=== PATIENT | female | born 1950 | race Hispanic/Latino ===

== ENCOUNTER 2017-01-23 18:10 | Observation (INO) | payer BC, MEDICAID, MEDICARE, OTHER ==
[2017-01-23 18:10] VITALS: BMI 30.9
--- NOTE | 2017-01-23 18:42 | ED PDOC ---
HPI: Abdomen Time Seen by Provider: 01/23/17 18:29 Chief Complaint (Nursing): Abdominal Pain Chief Complaint (Provider): Right lower quadrant abdominal pain History Per: Patient History/Exam Limitations: no limitations Onset/Duration Of Symptoms: Other (2 years) Location Of Pain/Discomfort: RLQ Additional Complaint(s): Patient is a 66 years old female with a past medical history of cholecystectomy and chronic renal failure (on dialysis) presenting to the emergency department for right lower quadrant abdominal pain ongoing for two years with associated occasional diarrhea. Denies bleeding, vomiting, and fever. Of note, patient has had previous multiple ED visits and workups with no conclusive findings and went to [facility]] two weeks ago. Last dialysis session was on January 21. PCP: Dr. Ashleigh Biggs. Past Medical History Reviewed: Historical Data Vital Signs: Last Vital Signs Temp 97.6 F 01/23/17 18:18 Pulse 60 01/23/17 18:18 Resp 16 01/23/17 18:18 BP 146/70 01/23/17 18:18 Pulse Ox 94 L 01/23/17 18:58 - Medical History PMH: Anemia, Anxiety, Back Problems, CHF, Depression, Diabetes, Gall Bladder Disease, HTN, Hypercholesterolemia, Hypothyroidism, Peripheral Edema, Pneumonia , End Stage Renal Disease, Chronic Kidney Disease, Sleep Apnea, TIA (right sided weakness) - Surgical History Surgical History: Cholecystectomy, Endoscopy, Tonsillectomy - Family History Family History: States: Unknown Family Hx, Hypertension (mother and father) - Immunization History Hx Tetanus Toxoid Vaccination: No Hx Influenza Vaccination: No Hx Pneumococcal Vaccination: Yes - Home Medications Home Medications: Ambulatory Orders Medication Instructions Recorded Atenolol [Tenormin] 25 mg PO DAILY 01/21/17 Cephalexin [Keflex] 500 mg PO MWF #3 capsule 01/21/17 GlipiZIDE [Glucotrol] 5 mg PO DAILY 01/21/17 Neomycin/Polymyxin/Hydrocortis 4 drop OT QID #1 bottle 01/21/17 [Cortisporin Otic Susp] traMADol [Ultram] 50 mg PO Q12 PRN #10 tab 01/21/17 - Allergies Allergies/Adverse Reactions: Allergies Allergy/AdvReac Type Severity Reaction Status Date / Time calcium acetate [From PhosLo] Allergy Severe hives Verified 01/23/17 04:31 glycerin Allergy Severe RASH Verified 01/23/17 04:31 Influenza Virus Vaccines Allergy Severe ANAPHYLAXIS Verified 01/23/17 04:31 levofloxacin Allergy Severe numbness Verified 01/23/17 04:31 propylene glycol Allergy Severe SWELLING Verified 01/23/17 04:31 sodium polystyrene sulfonate Allergy Severe SWELLING Verified 01/23/17 04:31 [From Kayexalate] ergocalciferol (vitamin D2) Allergy SWELLING Verified 01/23/17 04:31 [From Vitamin D2] seafood Allergy Severe throat Uncoded 01/23/17 04:31 swelling Review of Systems ROS Statement: Except As Marked, All Systems Reviewed And Found Negative Constitutional: Negative for: Fever Gastrointestinal: Positive for: Abdominal Pain (Right lower quadrant abdominal pain), Diarrhea (occasional). Negative for: Vomiting, Other (bleeding) Physical Exam - Reviewed Nursing Documentation Reviewed: Yes Vital Signs Reviewed: Yes - Physical Exam Appears: Positive for: Well, Non-toxic, No Acute Distress Head Exam: Positive for: ATRAUMATIC, NORMAL INSPECTION, NORMOCEPHALIC Skin: Positive for: Normal Color, Warm, Dry Eye Exam: Positive for: Normal appearance, EOMI, PERRL Neck: Positive for: Normal, Painless ROM, Supple Cardiovascular/Chest: Positive for: Regular Rate, Rhythm. Negative for: Murmur Respiratory: Positive for: Normal Breath Sounds. Negative for: Respiratory Distress Gastrointestinal/Abdominal: Positive for: Tenderness (right lower quadrant abdominal tenderness). Negative for: Normal Exam Back: Positive for: Normal Inspection Extremity: Positive for: Swelling (bilateral lower extremity edema). Negative for: Calf Tenderness Neurologic/Psych: Positive for: Alert, Oriented. Negative for: Motor/Sensory Deficits - Laboratory Results Result Diagrams: 01/23/17 19:01 01/23/17 19:01 - ECG O2 Sat by Pulse Oximetry: 94 (RA) Pulse Ox Interpretation: Normal Medical Decision Making Medical Decision Making: Time: 1836 Initial impression: Right lower quadrant abdominal pain Initial plan: Labs Urine Dipstick Reevaluation Scribe Attestation: Documented by Roberta Dickson, acting as a scribe for Mark Guzmán MD. Provider Scribe Attestation: All medical record entries made by the Scribe were at my direction and personally dictated by me. I have reviewed the chart and agree that the record accurately reflects my personal performance of the history, physical exam, medical decision making, and the department course for this patient. I have also personally directed, reviewed, and agree with the discharge instructions and disposition. Disposition - Clinical Impression Clinical Impression: Chronic kidney disease, stage V, UTI (urinary tract infection) - Patient ED Disposition Is Patient to be Admitted: Yes - Disposition Disposition Time: 20:59 Condition: FAIR Forms: [facility] (Algerian) - Pt Status Changed To: Hospital Disposition Of: Inpatient - Admit Certification Admit to Inpatient:: After my assessment, the patient will require hospitalization for at least two midnights. This is because of the severity of symptoms shown, intensity of services needed, and/or the medical risk in this patient being treated as an outpatient. - POA Present On Arrival: None
[2017-01-23 19:17] LABS: BASO # 0.1 K/uL (0.0-0.2); EOS # 0.2 K/uL (0.0-0.7); EOS % 2.4 % (0.0-4.0); HEMOGLOBIN 8.5 g/dL (12.0-16.0); LYMPH # 1.4 K/uL (1.0-4.3); LYMPH % 20.1 % (20.0-40.0); MEAN CELL VOLUME 86.5 fl (81.0-99.0); MEAN CORPUSCULAR HEMOGLOBIN 28.2 pg (27.0-31.0); MEAN CORPUSCULAR HGB CONC 32.6 g/dL (33.0-37.0); MEAN PLATELET VOLUME 7.8 fl (7.2-11.7); MONO # 0.6 K/uL (0.0-0.8); NEUT # 4.7 K/uL (1.8-7.0); NEUT % 67.5 % (50.0-75.0); NRBC % 0.1 % (0.0-0.0); RED CELL DISTRIBUTION WIDTH 18.7 % (11.5-14.5)
[2017-01-23 19:25] LABS: ALB/GLOB RATIO 1.3 (1.0-2.1); ALBUMIN 4.3 g/dL (3.5-5.0)
[2017-01-23] MEDS ORDERED: cefTRIAXone (Rocephin) 1 gm Inj ONE (21:27)
[2017-01-24] MEDS: Pantoprazole 40 mg EC Tab PO SCH ×2 (01:22→09:55)
[2017-01-24 06:22] VITALS: O2SAT 96
[2017-01-24 06:24] LABS: HEMOGLOBIN 8.6 g/dL (12.0-16.0); MEAN CELL VOLUME 85.9 fl (81.0-99.0); MEAN CORPUSCULAR HEMOGLOBIN 28.2 pg (27.0-31.0); MEAN CORPUSCULAR HGB CONC 32.8 g/dL (33.0-37.0); RBC 3.07 Mil/uL (3.80-5.20); RED CELL DISTRIBUTION WIDTH 18.4 % (11.5-14.5); WHITE BLOOD COUNT 7.3 K/uL (4.8-10.8)
[2017-01-24 06:38] LABS: ALB/GLOB RATIO 1.3 (1.0-2.1); ALBUMIN 4.3 g/dL (3.5-5.0); CALCIUM 7.9 mg/dL (8.4-10.2)
--- NOTE | 2017-01-24 07:33 | CARD ---
APPROVED REPORT EKG Measurement Heart [id number] <Conclusion> Normal sinus rhythm Left axis deviation Left bundle branch block Abnormal ECG
[2017-01-24 08:14] VITALS: BP 166/68; PULSE 56; RESP 18; TEMP 97.9
[2017-01-24] MEDS ORDERED: Enoxaparin 30 mg Syringe SC SCH (09:00)
[2017-01-24] MEDS ORDERED: Pantoprazole 40 mg EC Tab PO SCH (09:00)
--- NOTE | 2017-01-24 10:34 | CP.PCM.CON ---
History of Present Illness - History of Present Illness History of Present Illness: Patient is a 66 years of age admitted with abdominal pain from the emergency room. I came to see her this morning and she is dressed up and ready to sign out against advice because she wants to go home with her daughter at the bedside. This patient home with end stage renal disease she missed dialysis yesterday she goes to outpatient dialysis unit. She has a previous admission in this hospital which she was very difficult patient at that time and remained difficult refusing multiple medication refusing dialysis at that time at least. Patient has been follow-up by outpatient dialysis with her lay out worker History of CVA hypertension and stage renal disease. Social history as noted Review of Systems - Constitutional Constitutional: Anorexia - EENT Eyes: As Per HPI Nose/Mouth/Throat: As Per HPI - Cardiovascular Cardiovascular: absent: Chest Pain, Dyspnea, Leg Edema - Respiratory Respiratory: Dyspnea on Exertion - Gastrointestinal Gastrointestinal: Abdominal Pain - Reproductive: Female Reproductive:Female: Post Menopausal - Menstruation Menstruation: As Per HPI - Musculoskeletal Musculoskeletal: Muscle Weakness - Neurological Neurological: As Per HPI Past Patient History - Infectious Disease Hx of Infectious Diseases: None - Past Medical History & Family History Past Medical History?: Yes - Past Social History Smoking Status: Never Smoked - CARDIAC Hx Cardiac Disorders: Yes Hx Congestive Heart Failure: Yes Hx Hypercholesterolemia: Yes Hx Hypertension: Yes - PULMONARY Hx Respiratory Disorders: Yes Hx Pneumonia: Yes Hx Sleep Apnea: Yes - NEUROLOGICAL Hx Neurological Disorder: Yes Hx Transient Ischemic Attacks (TIA): Yes (Right sided weakness) - HEENT Hx HEENT Problems: No - RENAL Hx Chronic Kidney Disease: Yes Hx Dialysis: Yes Type of Dialysis Access: Left upper arm AV fistula Date of Last Dialysis Treatment: 01/21/17 Hx Renal Failure: Yes - ENDOCRINE/METABOLIC Hx Endocrine Disorders: Yes Hx Diabetes Mellitus Type 2: Yes Hx Hypothyroidism: Yes - HEMATOLOGICAL/ONCOLOGICAL Hx Blood Disorders: Yes Hx Anemia: Yes - INTEGUMENTARY Hx Dermatological Problems: No - MUSCULOSKELETAL/RHEUMATOLOGICAL Hx Musculoskeletal Disorders: Yes Hx Back Pain: Yes Hx Falls: No - GASTROINTESTINAL Hx Gastrointestinal Disorders: Yes Hx Gall Bladder Disease: Yes - GENITOURINARY/GYNECOLOGICAL Hx Genitourinary Disorders: No - PSYCHIATRIC Hx Psychophysiologic Disorder: Yes Hx Anxiety: Yes Hx Substance Use: No - SURGICAL HISTORY Hx Surgeries: Yes Hx Cholecystectomy: Yes Hx Tonsillectomy: Yes - ANESTHESIA Hx Anesthesia: Yes Hx Anesthesia Reactions: No Hx Malignant Hyperthermia: No Meds Allergies/Adverse Reactions: Allergies Allergy/AdvReac Type Severity Reaction Status Date / Time calcium acetate [From PhosLo] Allergy Severe hives Verified 01/23/17 04:31 glycerin Allergy Severe RASH Verified 01/23/17 04:31 Influenza Virus Vaccines Allergy Severe ANAPHYLAXIS Verified 01/23/17 04:31 levofloxacin Allergy Severe numbness Verified 01/23/17 04:31 propylene glycol Allergy Severe SWELLING Verified 01/23/17 04:31 sodium polystyrene sulfonate Allergy Severe SWELLING Verified 01/23/17 04:31 [From Kayexalate] ergocalciferol (vitamin D2) Allergy SWELLING Verified 01/23/17 04:31 [From Vitamin D2] tramadol AdvReac NAUSEA Verified 01/24/17 00:01 seafood Allergy Severe throat Uncoded 01/23/17 04:31 swelling - Medications Medications: Current Medications Heparin Sodium (Porcine) (Heparin) 5,000 units SC Q12 [facility] PRN Reason: Protocol Last Admin: 01/24/17 09:55 Dose: Not Given Ceftriaxone Sodium 1 gm/ (Sodium Chloride) 100 mls @ 100 mls/hr IVPB DAILY [facility] Last Admin: 01/24/17 09:55 Dose: Not Given Pantoprazole Sodium (Protonix Ec Tab) 40 mg PO DAILY [facility] Last Admin: 01/24/17 09:55 Dose: Not Given Physical Exam - Constitutional Appears: No Acute Distress - ENT Exam ENT Exam: Mucous Membranes Moist - Respiratory Exam Respiratory Exam: NORMAL BREATHING PATTERN. absent: Chest Wall Tenderness - Cardiovascular Exam Cardiovascular Exam: absent: JVD, Rubs - GI/Abdominal Exam GI & Abdominal Exam: Normal Bowel Sounds - Extremities Exam Extremities exam: Positive for: calf tenderness - Back Exam Back exam: absent: CVA tenderness (L), CVA tenderness (R) - Neurological Exam Neurological exam: Alert Results - Vital Signs Recent Vital Signs: Last Vital Signs Temp 97.9 F 01/24/17 08:00 Pulse 56 L 01/24/17 08:00 Resp 18 01/24/17 08:00 BP 166/68 H 01/24/17 08:00 Pulse Ox 96 01/24/17 08:00 - Labs Result Diagrams: 01/24/17 05:35 01/24/17 05:35 Labs: Laboratory Results - last 24 hr 0801/24/17 01/24/17 05:10 05:35 05:35 WBC 7.3 RBC 3.07 L Hgb 8.6 L Hct 26.3 L MCV 85.9 MCH 28.2 MCHC 32.8 L RDW 18.4 H Plt Count 288 Sodium 139 Potassium 4.9 Chloride 95 L Carbon Dioxide 23 Anion Gap 26 H BUN 71 H Creatinine 7.8 H* Est GFR ( Amer) 6 Est GFR (Non-Af Amer) 5 POC Glucose (mg/dL) 158 H Random Glucose 126 H Calcium 7.9 L Total Bilirubin 1.4 H AST 59 H ALT 53 H Alkaline Phosphatase 140 H Total Protein 7.6 Albumin 4.3 Globulin 3.3 Albumin/Globulin Ratio 1.3 Assessment & Plan (1) Chronic kidney disease requiring chronic dialysis Assessment and Plan: Patient known with end stage renal disease on maintenance dialysis 3 times a week she missed her dialysis and about to do dialysis this morning don't have she refused to sign consent for dialysis also she sign herself out and leaving . Her daughter at the bedside. Patient stated no more abdominal pain and she is going to go outpatient dialysis unit with her daughter. I advised strongly the patient to stay here and have have dialysis however she absolutely positively refused and she is ready to leave. Status: Acute
--- NOTE | 2017-01-24 16:47 | CP.PCM.HP ---
History of Present Illness - History of Present Illness History of Present Illness: 66 y/o F with PMHx of HTN, DM, and CKD on Dialysis three times per week( M, W, F ) who presents to ED yesterday c/o intermittent right sided back pain since the last 2 years.Patient states that the pain started in her neck, radiates to her back and then radiates to her right abdomen and sometimes right sided externa genitalia. Patient denies fevers, chills, dysuria, N/V, hematuria. Patient states that the pain is associated with gas sensation and burping. As per patient she missed her dialysis yesterday because " she was not feeling well". PCP: Dr. Ashleigh Biggs. Nephro: Shanna Lombardi Present on Admission - Present on Admission Any Indicators Present on Admission: No History of DVT/PE: No History of Uncontrolled Diabetes: No Urinary Catheter: No Decubitus Ulcer Present: No Review of Systems - Review of Systems All systems: reviewed and no additional remarkable complaints except (as per HPI ) Past Patient History - Infectious Disease Hx of Infectious Diseases: None - Past Medical History & Family History Past Medical History?: Yes - Past Social History Smoking Status: Never Smoked - CARDIAC Hx Cardiac Disorders: Yes Hx Congestive Heart Failure: Yes Hx Hypercholesterolemia: Yes Hx Hypertension: Yes - PULMONARY Hx Respiratory Disorders: Yes Hx Pneumonia: Yes Hx Sleep Apnea: Yes - NEUROLOGICAL Hx Neurological Disorder: Yes Hx Transient Ischemic Attacks (TIA): Yes (Right sided weakness) - HEENT Hx HEENT Problems: No - RENAL Hx Chronic Kidney Disease: Yes Hx Dialysis: Yes Type of Dialysis Access: Left upper arm AV fistula Date of Last Dialysis Treatment: 01/21/17 Hx Renal Failure: Yes - ENDOCRINE/METABOLIC Hx Endocrine Disorders: Yes Hx Diabetes Mellitus Type 2: Yes Hx Hypothyroidism: Yes - HEMATOLOGICAL/ONCOLOGICAL Hx Blood Disorders: Yes Hx Anemia: Yes - INTEGUMENTARY Hx Dermatological Problems: No - MUSCULOSKELETAL/RHEUMATOLOGICAL Hx Musculoskeletal Disorders: Yes Hx Back Pain: Yes Hx Falls: No - GASTROINTESTINAL Hx Gastrointestinal Disorders: Yes Hx Gall Bladder Disease: Yes - GENITOURINARY/GYNECOLOGICAL Hx Genitourinary Disorders: No - PSYCHIATRIC Hx Psychophysiologic Disorder: Yes Hx Anxiety: Yes Hx Substance Use: No - SURGICAL HISTORY Hx Surgeries: Yes Hx Cholecystectomy: Yes Hx Tonsillectomy: Yes - ANESTHESIA Hx Anesthesia: Yes Hx Anesthesia Reactions: No Hx Malignant Hyperthermia: No Meds Allergies/Adverse Reactions: Allergies Allergy/AdvReac Type Severity Reaction Status Date / Time calcium acetate [From PhosLo] Allergy Severe hives Verified 01/23/17 04:31 glycerin Allergy Severe RASH Verified 01/23/17 04:31 Influenza Virus Vaccines Allergy Severe ANAPHYLAXIS Verified 01/23/17 04:31 levofloxacin Allergy Severe numbness Verified 01/23/17 04:31 propylene glycol Allergy Severe SWELLING Verified 01/23/17 04:31 sodium polystyrene sulfonate Allergy Severe SWELLING Verified 01/23/17 04:31 [From Kayexalate] ergocalciferol (vitamin D2) Allergy SWELLING Verified 01/23/17 04:31 [From Vitamin D2] tramadol AdvReac NAUSEA Verified 01/24/17 00:01 seafood Allergy Severe throat Uncoded 01/23/17 04:31 swelling Physical Exam - Constitutional Appears: No Acute Distress - ENT Exam ENT Exam: Mucous Membranes Moist - Respiratory Exam Respiratory Exam: Clear to Auscultation Bilateral, NORMAL BREATHING PATTERN - Cardiovascular Exam Cardiovascular Exam: REGULAR RHYTHM, +S1, +S2 - GI/Abdominal Exam GI & Abdominal Exam: Normal Bowel Sounds, Soft, Tenderness (mild diffuse tenderness to palpation of all quadrants, no rebound tenderness noted. ). absent: Guarding, Rebound, Rigid - Extremities Exam Extremities exam: Positive for: normal inspection, pedal edema (edema in both LE pitting 2+). Negative for: calf tenderness - Back Exam Back exam: NORMAL INSPECTION. absent: CVA tenderness (L), CVA tenderness (R) - Neurological Exam Neurological exam: Alert, Oriented x3 - Skin Skin Exam: Dry, Intact, Pallor Results - Vital Signs Recent Vital Signs: Last Vital Signs Temp 97.9 F 01/24/17 08:00 Pulse 56 L 01/24/17 09:00 Resp 18 01/24/17 08:00 BP 166/68 H 01/24/17 08:00 Pulse Ox 96 01/24/17 08:00 - Labs Result Diagrams: 01/24/17 05:35 01/24/17 05:35 Labs: Laboratory Results - last 24 hr 01/24/17 01/24/17 01/24/17 05:10 05:35 05:35 WBC 7.3 RBC 3.07 L Hgb 8.6 L Hct 26.3 L MCV 85.9 MCH 28.2 MCHC 32.8 L RDW 18.4 H Plt Count 288 Sodium 139 Potassium 4.9 Chloride 95 L Carbon Dioxide 23 Anion Gap 26 H BUN 71 H Creatinine 7.8 H* Est GFR ( Amer) 6 Est GFR (Non-Af Amer) 5 POC Glucose (mg/dL) 158 H Random Glucose 126 H Calcium 7.9 L Total Bilirubin 1.4 H AST 59 H ALT 53 H Alkaline Phosphatase 140 H Total Protein 7.6 Albumin 4.3 Globulin 3.3 Albumin/Globulin Ratio 1.3 Assessment & Plan - Assessment and Plan (Free Text) Plan: UTI -admit to telemetry -UA done on 01/21/17 at [facility] showed WBC: 161. No UCx recorded -f/u UCx f/u BCx C/W antibiotics Uncontrolled Hypertension c/w home medication c/w Dialysis c/w BP monitoring CKD stage V on Dialysis BUN/Cr: 71/7.8 f/u BMP Nephrology consult , f/u recommendations Anemia Most likely 2/2 CKD f/w H/H DVT prophylaxis Heparin SC Q12 - Date & Time Date: 01/24/17 Time: 08:10
== END 2017-01-24 11:30 | disposition left against medical advice (07) ==
LOC: H.ER 18:10 → H.ERHOLD 20:57 → H.TEL 23:24
PROVIDERS: ADMIT Family Medicine; ATTEND Family Medicine
DX: N39.0 Urinary tract infection, site not specified (principal); I13.2 Hypertensive heart and chronic kidney disease with heart failure and with stage 5 chronic kidney disease, or end stage renal disease; N18.5 Chronic kidney disease, stage 5; I50.9 Heart failure, unspecified; D63.1 Anemia in chronic kidney disease; E11.22 Type 2 diabetes mellitus with diabetic chronic kidney disease; Z99.2 Dependence on renal dialysis; E03.9 Hypothyroidism, unspecified; E78.00 Pure hypercholesterolemia, unspecified; G47.30 Sleep apnea, unspecified; I69.951 Hemiplegia and hemiparesis following unspecified cerebrovascular disease affecting right dominant side; Z88.1 Allergy status to other antibiotic agents; Z88.7 Allergy status to serum and vaccine
CPT/HCPCS: 36415; 80053; 82948; 85025; 85027; 87040; 93005; 96365; 99285; G0378; J0696

== ENCOUNTER 2017-01-27 01:33 | Emergency (ER) | payer MEDICARE ==
[2017-01-27 01:33] VITALS: BMI 30.9
[2017-01-27 02:13] VITALS: BP 162/53; PULSE 74; RESP 16; TEMP 99; O2SAT 98
[2017-01-27 02:45] LABS: BASO # 0.1 K/uL (0.0-0.2); BASO % 1.2 % (0.0-2.0); EOS # 0.2 K/uL (0.0-0.7); EOS % 2.9 % (0.0-4.0); HEMOGLOBIN 8.5 g/dL (12.0-16.0); LYMPH # 1.3 K/uL (1.0-4.3); LYMPH % 17.8 % (20.0-40.0); MEAN CELL VOLUME 86.6 fl (81.0-99.0); MEAN CORPUSCULAR HEMOGLOBIN 28.5 pg (27.0-31.0); MEAN CORPUSCULAR HGB CONC 32.9 g/dL (33.0-37.0); MEAN PLATELET VOLUME 7.7 fl (7.2-11.7); MONO # 0.8 K/uL (0.0-0.8); MONO % 11.1 % (0.0-10.0); NEUT # 4.9 K/uL (1.8-7.0); NRBC % 0.1 % (0.0-0.0); RBC 2.98 Mil/uL (3.80-5.20); RED CELL DISTRIBUTION WIDTH 18.5 % (11.5-14.5); WHITE BLOOD COUNT 7.4 K/uL (4.8-10.8)
--- NOTE | 2017-01-27 02:46 | ED PDOC ---
HPI: Abdomen Time Seen by Provider: 01/27/17 02:00 Chief Complaint (Nursing): Abdominal Pain Chief Complaint (Provider): abdominal pain History Per: Patient (66 y/o female h/o DM/HTN/Dialysis MWF with complaint of abdominal pain on and off ruq. Patient has h/o cholecystecomy. Notes belching. Denies any vomiting. Has had BM yesterday. No fevers/chills.) Past Medical History Reviewed: Historical Data, Nursing Documentation, Vital Signs Vital Signs: Last Vital Signs Temp 99.0 F 01/27/17 02:11 Pulse 74 01/27/17 02:11 Resp 16 01/27/17 02:11 BP 162/53 H 01/27/17 02:11 Pulse Ox 98 01/27/17 05:06 - Medical History PMH: Anemia, Anxiety, Back Problems, CHF, Depression, Diabetes, Gall Bladder Disease, HTN, Hypercholesterolemia, Hypothyroidism, Peripheral Edema, Pneumonia , End Stage Renal Disease, Chronic Kidney Disease, Sleep Apnea, TIA (Right sided weakness) - Surgical History Surgical History: Cholecystectomy, Endoscopy, Tonsillectomy - Family History Family History: States: Unknown Family Hx, Hypertension (mother and father) - Immunization History Hx Tetanus Toxoid Vaccination: No Hx Influenza Vaccination: No Hx Pneumococcal Vaccination: Yes - Home Medications Home Medications: Ambulatory Orders Medication Instructions Recorded Atenolol [Tenormin] 25 mg PO DAILY 01/21/17 Cephalexin [Keflex] 500 mg PO F #3 capsule 01/21/17 GlipiZIDE [Glucotrol] 5 mg PO DAILY 01/21/17 Neomycin/Polymyxin/Hydrocortis 4 drop OT QID #1 bottle 01/21/17 [Cortisporin Otic Susp] traMADol [Ultram] 50 mg PO Q12 PRN #10 tab 01/21/17 Cephalexin [Keflex] 250 mg PO Q12 #8 cap 01/27/17 Metoclopramide [Reglan] 10 mg PO Q8 PRN #8 tab 01/27/17 - Allergies Allergies/Adverse Reactions: Allergies Allergy/AdvReac Type Severity Reaction Status Date / Time calcium acetate [From PhosLo] Allergy Severe hives Verified 01/23/17 04:31 glycerin Allergy Severe RASH Verified 01/23/17 04:31 Influenza Virus Vaccines Allergy Severe ANAPHYLAXIS Verified 01/23/17 04:31 levofloxacin Allergy Severe numbness Verified 01/23/17 04:31 propylene glycol Allergy Severe SWELLING Verified 01/23/17 04:31 sodium polystyrene sulfonate Allergy Severe SWELLING Verified 01/23/17 04:31 [From Kayexalate] ergocalciferol (vitamin D2) Allergy SWELLING Verified 01/23/17 04:31 [From Vitamin D2] tramadol AdvReac NAUSEA Verified 01/24/17 00:01 seafood Allergy Severe throat Uncoded 01/23/17 04:31 swelling Review of Systems ROS Statement: Except As Marked, All Systems Reviewed And Found Negative Gastrointestinal: Positive for: Abdominal Pain Physical Exam - Reviewed Nursing Documentation Reviewed: Yes Vital Signs Reviewed: Yes - Physical Exam Appears: Positive for: Well, Non-toxic, No Acute Distress Head Exam: Positive for: ATRAUMATIC, NORMAL INSPECTION, NORMOCEPHALIC Skin: Positive for: Normal Color, Warm, DRY Eye Exam: Positive for: EOMI, Normal appearance, PERRL ENT: Positive for: Normal ENT Inspection Neck: Positive for: Normal, Painless ROM Cardiovascular/Chest: Positive for: Regular Rate, Rhythm Respiratory: Positive for: CNT, Normal Breath Sounds Gastrointestinal/Abdominal: Positive for: Normal Exam, Bowel Sounds, Soft Back: Positive for: Normal Inspection Extremity: Positive for: Normal ROM Neurologic/Psych: Positive for: Alert, Oriented - Laboratory Results Result Diagrams: 01/27/17 02:00 01/27/17 02:00 - ECG O2 Sat by Pulse Oximetry: 98 - Progress ED Course And Treament: Reglan 10 mg iv x 1 dose Pepcid 20 mg iv x 1 dose Old records reviewed. Patient was admitted 01/23/2017 for abdominal pain/uti. Patient left AMA prior to further investigation of abdominal pain. Patient has had CT of abdomen/pelvis 12/2016 at [facility] with notice of right adnexal mass. simethicone 80mg x 1 dose with improvement UTI noted. Patient does not want to stay inpatient as she has dialysis tomorrow and would prefer to have it at her primary center. She will call Dr. Gisselle CURTIS to arrange for further management of abdominal pain. Disposition - Clinical Impression Clinical Impression: Gastroparesis, UTI (urinary tract infection) - Patient ED Disposition Is Patient to be Admitted: No - Disposition Referrals: Lex Oleary MD, PhD [Staff Provider] - [facility] [Outside] Disposition: Routine/Home Disposition Time: 05:10 Condition: FAIR Prescriptions: Cephalexin [Keflex] 250 mg PO Q12 #8 cap Metoclopramide [Reglan] 10 mg PO Q8 PRN #8 tab PRN Reason: Pain, Moderate (4-7) Instructions: Urinary Tract Infection in Women (DC), Gastroparesis (ED) Forms: [employer] (Kittitian)
[2017-01-27 02:56] LABS: ALB/GLOB RATIO 1.3 (1.0-2.1); ALBUMIN 4.2 g/dL (3.5-5.0); CALCIUM 8.2 mg/dL (8.4-10.2)
[2017-01-27 03:08] LABS: TROPONIN I 0.022 ng/mL (0.00-0.120)
[2017-01-27] MEDS ORDERED: Simethicone 40 mg/0.6 ml Liquid (30 ml) PO STA (03:25)
[2017-01-27 04:22] LABS: SQUAMOUS EPITHIAL 8 /hpf (0-5); URINE BACTERIA RARE (<OCC); URINE BILIRUBIN NEGATIVE (NEGATIVE); URINE BLOOD NEGATIVE (NEGATIVE); URINE CLARITY SLIGHTY-CLOUDY (Clear); URINE COLOR YELLOW (YELLOW); URINE GLUCOSE (UA) 150 mg/dL (Normal); URINE HYALINE CAST 0-2 /hpf (0-2); URINE LEUKOCYTE ESTERASE TRACE Leu/uL (Negative); URINE NITRATE NEGATIVE (NEGATIVE); URINE PROTEIN >=500 mg/dL (NEGATIVE); URINE UROBILINOGEN 0.2-1.0 mg/dL (0.2-1.0)
--- NOTE | 2017-01-27 08:49 | RAD ---
PROCEDURE: CHEST RADIOGRAPH, 1 VIEW HISTORY: routine COMPARISON: None available. FINDINGS: LUNGS: Clear. PLEURA: No pneumothorax or pleural fluid seen. CARDIOVASCULAR: Normal. OSSEOUS STRUCTURES: No significant abnormalities. VISUALIZED UPPER ABDOMEN: Normal. OTHER FINDINGS: None. IMPRESSION: No active disease.
--- NOTE | 2017-01-27 08:51 | RAD ---
HISTORY: abdominal pain COMPARISON: No prior. FINDINGS: BOWEL: Normal. No obstruction. No free air. BONES: Normal. OTHER FINDINGS: Status post cholecystectomy. IMPRESSION: No active disease.
--- NOTE | 2017-01-27 10:29 | CARD ---
APPROVED REPORT EKG Measurement Heart [id number] <Conclusion> Sinus bradycardia Left axis deviation Left bundle branch block Abnormal ECG
== END 2017-01-27 05:34 | disposition home or self-care (01) ==
LOC: H.ER 01:33
DX: K31.84 Gastroparesis (principal); N39.0 Urinary tract infection, site not specified; Z90.49 Acquired absence of other specified parts of digestive tract
CPT/HCPCS: 71010; 74022; 80053; 81003; 83690; 84484; 85025; 87086; 87181; 93005; 96374; 96375; 99283; J2765

== ENCOUNTER 2017-01-28 16:30 | Emergency (ER) | payer MEDICARE ==
[2017-01-28 16:30] VITALS: BMI 30.9
[2017-01-28 16:39] VITALS: BP 165/65; PULSE 58; RESP 16; O2SAT 97
--- NOTE | 2017-01-28 17:30 | ED PDOC ---
HPI: Abdomen Time Seen by Provider: 01/28/17 16:43 Chief Complaint (Nursing): Abdominal Pain Chief Complaint (Provider): Abdominal Pain History Per: Patient History/Exam Limitations: no limitations Onset/Duration Of Symptoms: Days (x2 weeks) Current Symptoms Are (Timing): Still Present Additional Complaint(s): Sharifa Eid is a 66 year old female who presents to the emergency department with a complaint of intermittent right upper and lower abdominal pain associated with bloating sensation, progressive weakness, malaise, fatigue, constipation, difficulty swallowing and decreased appetite ongoing for 2 years but worsening in the last 2 weeks. Denied nausea, vomiting, dysuria, hematuria, fever, chills, rhinorrhea, cough, black or bloody stools. Patient has been seen multiple times in the last month at [facility] for similar symptoms. CT ABD/pelvis was done on 01/10/17 which showed findings of UTI and right adnexa mass. PMD: Dian Sotelo MD Past Medical History Reviewed: Historical Data, Nursing Documentation, Vital Signs Vital Signs: Last Vital Signs Temp 97.5 F L 01/28/17 16:34 Pulse 58 L 01/28/17 16:34 Resp 16 01/28/17 16:34 BP 165/65 H 01/28/17 16:34 Pulse Ox 97 01/28/17 21:55 - Medical History PMH: Anemia, Anxiety, Back Problems, CHF, Depression, Diabetes, Gall Bladder Disease, HTN, Hypercholesterolemia, Hypothyroidism, Peripheral Edema, Pneumonia , End Stage Renal Disease, Chronic Kidney Disease, Sleep Apnea, TIA (Right sided weakness) - Surgical History Surgical History: Cholecystectomy, Endoscopy, Tonsillectomy - Family History Family History: States: Unknown Family Hx, Hypertension (mother and father) - Social History Current smoker - smoking cessation education provided: No Alcohol: None Drugs: Denies - Immunization History Hx Tetanus Toxoid Vaccination: No Hx Influenza Vaccination: No Hx Pneumococcal Vaccination: Yes - Home Medications Home Medications: Ambulatory Orders Medication Instructions Recorded Atenolol [Tenormin] 25 mg PO DAILY 01/21/17 Cephalexin [Keflex] 500 mg PO MWF #3 capsule 01/21/17 GlipiZIDE [Glucotrol] 5 mg PO DAILY 01/21/17 Neomycin/Polymyxin/Hydrocortis 4 drop OT QID #1 bottle 01/21/17 [Cortisporin Otic Susp] traMADol [Ultram] 50 mg PO Q12 PRN #10 tab 01/21/17 Cephalexin [Keflex] 250 mg PO Q12 #8 cap 01/27/17 Docusate Sodium [Colace] 1 tab PO BID #20 capsule 01/27/17 Metoclopramide [Reglan] 10 mg PO Q8 PRN #8 tab 01/27/17 - Allergies Allergies/Adverse Reactions: Allergies Allergy/AdvReac Type Severity Reaction Status Date / Time calcium acetate [From PhosLo] Allergy Severe hives Verified 01/23/17 04:31 glycerin Allergy Severe RASH Verified 01/23/17 04:31 Influenza Virus Vaccines Allergy Severe ANAPHYLAXIS Verified 01/23/17 04:31 levofloxacin Allergy Severe numbness Verified 01/23/17 04:31 propylene glycol Allergy Severe SWELLING Verified 01/23/17 04:31 sodium polystyrene sulfonate Allergy Severe SWELLING Verified 01/23/17 04:31 [From Kayexalate] ergocalciferol (vitamin D2) Allergy SWELLING Verified 01/23/17 04:31 [From Vitamin D2] tramadol AdvReac NAUSEA Verified 01/24/17 00:01 seafood Allergy Severe throat Uncoded 01/23/17 04:31 swelling Review of Systems ROS Statement: Except As Marked, All Systems Reviewed And Found Negative (and as per HPI) Constitutional: Positive for: Weakness (progressive), Malaise, Other (fatigue). Negative for: Fever, Chills ENT: Positive for: Throat Pain (with swallowing). Negative for: Nose Discharge Respiratory: Negative for: Cough Gastrointestinal: Positive for: Abdominal Pain (intermittent right upper and lower associated with bloating sensation), Constipation (chronic), Other ( decreased appetite). Negative for: Nausea, Vomiting, Melena, Hematochezia Genitourinary Female: Negative for: Dysuria, Hematuria Physical Exam - Reviewed Nursing Documentation Reviewed: Yes Vital Signs Reviewed: Yes - Physical Exam Appears: Positive for: Non-toxic, In Acute Distress Head Exam: Positive for: ATRAUMATIC, NORMOCEPHALIC Skin: Positive for: Warm, Dry, Pallor Eye Exam: Positive for: EOMI, PERRL ENT: Negative for: Pharyngeal Erythema, Tonsillar Exudate, Tonsillar Swelling Neck: Positive for: Painless ROM, Supple Cardiovascular/Chest: Positive for: Regular Rate, Rhythm, Chest Non Tender. Negative for: Murmur Respiratory: Positive for: Normal Breath Sounds. Negative for: Rales, Wheezing , Respiratory Distress Gastrointestinal/Abdominal: Positive for: Bowel Sounds, Soft, Tenderness (mild RUQ and RLQ ttp). Negative for: Mass, Distended, Guarding, Rebound Back: Positive for: Normal Inspection. Negative for: L CVA Tenderness, R CVA Tenderness Extremity: Negative for: Pedal Edema, Calf Tenderness Lymphatic: Negative for: Adenopathy Neurologic/Psych: Positive for: Alert. Negative for: Motor/Sensory Deficits - Laboratory Results Result Diagrams: 01/28/17 18:54 01/28/17 18:44 - ECG ECG Rhythm: Positive for: Sinus Bradycardia, Left Bundle Branch Block (similar to previous EKG 01/2017) O2 Sat by Pulse Oximetry: 97 (RA) Pulse Ox Interpretation: Normal - Progress Re-evaluation Time: 21:00 Condition: Unchanged Medical Decision Making Medical Decision Making: Initial Impression: Abdominal pain Differential diagnosis: Anemia, gastritis, pancreatitis, dehydration, adhesion pain, ovarian cancer Initial Plan: * Type and screen * CA 125 * Labs * Lipase * Magnesium * Phosphorours * Urine dipstick * PTT * PT * Reticulocyte count * Blood culture * Urine culture * Urinalysis * US pelvis * Re-evaluation CT ABD/Pelvis (01/10/17) FINDINGS: Lower thorax: Heart size is normal. There are coronary calcifications. There is decreased attenuation of blood pool relative to myocardium. There is scarring at the lung bases There is a small hiatal hernia. ABDOMEN: Liver: unremarkable Gallbladder and bile ducts: Gallbladder is absent. Common bile duct is prominent. Pancreas: Pancreas is atrophic. Spleen: unremarkable Adrenals: There is nodular thickening of the adrenals. Kidneys and ureters: Kidneys and ureters are unremarkable.. Stomach and bowel: Stomach is almost empty. Rotation is normal. There is no obstruction. Terminal ileum is unremarkable. Appendix is unremarkable. There is moderate stool in the colon. Appendix: See above. PELVIS: Bladder: unremarkable Reproductive: Uterus is mildly enlarged with coarse calcifications. There is an 8.4 x 7.3 x 8.7 cm cystic right adnexal mass. Wall appears mildly irregular. There are coarse calcifications in the left adnexa. Left adnexa is not enlarged. ABDOMEN and PELVIS: Intraperitoneal space: There is no free air. There is no free fluid. Bones/joints: There are degenerative changes in the osseus structures. Soft tissues: There is a small fat-containing umbilical hernia Vasculature: There are multiple phleboliths. There are vascular calcifications. Lymph nodes: There is shotty para-aortic adenopathy IMPRESSION: Possible anemia; prominent common duct status post cholecystectomy; pancreatic atrophy; 8.4 x 7.3 x 8.7 cm cystic right adnexal mass; calcified uterine fibroid; coarse calcification in the left adnexa; possible constipation Accession No. : [id number] Patient Name / ID : FÁTIMA SHUKLA / [id number] Exam Date : 01/28/2017 17:58:36 ( Approved ) Study Comment : Sex / Age : F / 66Y Creator : Dax Cha MD Dictator : Dax Cha MD Estimating Engineer : Electrical Test Engineer : Dax Cha MD Approver2 : Report Date : 01/28/2017 18:57:44 My Comment : HISTORY: RIGHT adnexal mass COMPARISON: CT abdomen and pelvis 03/05/2016 TECHNIQUE: Grayscale and color Doppler sonographic images were obtained of the pelvis utilizing transvaginal approach. FINDINGS: UTERUS: Anteverted and normal in size measuring 9.2 x 4.9 x 5.8 cm. Calcification in the uterus measuring 1.4 cm, possibly related fibroid. Additional calcification noted measuring 1.8 cm, mostly likely fibroid. ENDOMETRIUM: Single wall thickness of the endometrium is 0.3 cm, normal in caliber. Trace amount of fluid noted in the endometrial canal. CERVIX: Nabothian cyst noted. Calcifications noted in the cervix. RIGHT OVARY: Right ovary is not definitely seen. There is a right adnexal cystic mass measuring 8.7 x 8.6 x 6.3 cm. LEFT OVARY: Not visualized due to overlying bowel gas. FREE FLUID: No significant free fluid noted. OTHER FINDINGS: None. IMPRESSION: Right adnexal cystic mass measuring 8.7 cm. Recommend MRI for further evaluation Uterine calcifications, likely due to fibroids. Calcifications in the cervix, correlate clinically. Trace fluid in the endometrial canal, correlate clinically. LAKESHA Chapa for hospitalization. DW pt findings and plan of care Scribe Attestation: Documented by Naty Tong, acting as a scribe for Tatiana Carranza MD. Provider Scribe Attestation: All medical record entries made by the Scribe were at my direction and personally dictated by me. I have reviewed the chart and agree that the record accurately reflects my personal performance of the history, physical exam, medical decision making, and the department course for this patient. I have also personally directed, reviewed, and agree with the discharge instructions and disposition. Disposition - Clinical Impression Clinical Impression: Anemia, ESRD on hemodialysis, Adnexal mass, Abdominal pain Discussed With .: Car Chapa Comment: Hospitalization for abdominal pain with possible cancer of RIGHT adnexa and increasing LFTs Doctor Will See Patient In The: Hospital Counseled Patient/Family Regarding: Studies Performed, Diagnosis - Disposition Disposition Time: 20:00 Condition: FAIR - Pt Status Changed To: Hospital Disposition Of: Inpatient - Admit Certification Admit to Inpatient:: After my assessment, the patient will require hospitalization for at least two midnights. This is because of the severity of symptoms shown, intensity of services needed, and/or the medical risk in this patient being treated as an outpatient. - POA Present On Arrival: None
[2017-01-28 18:50] VITALS: TEMP 97.5
--- NOTE | 2017-01-28 18:59 | US ---
HISTORY: RIGHT adnexal mass COMPARISON: CT abdomen and pelvis 03/05/2016 TECHNIQUE: Grayscale and color Doppler sonographic images were obtained of the pelvis utilizing transvaginal approach. FINDINGS: UTERUS: Anteverted and normal in size measuring 9.2 x 4.9 x 5.8 cm. Calcification in the uterus measuring 1.4 cm, possibly related fibroid. Additional calcification noted measuring 1.8 cm, mostly likely fibroid. ENDOMETRIUM: Single wall thickness of the endometrium is 0.3 cm, normal in caliber. Trace amount of fluid noted in the endometrial canal. CERVIX: Nabothian cyst noted. Calcifications noted in the cervix. RIGHT OVARY: Right ovary is not definitely seen. There is a right adnexal cystic mass measuring 8.7 x 8.6 x 6.3 cm. LEFT OVARY: Not visualized due to overlying bowel gas. FREE FLUID: No significant free fluid noted. OTHER FINDINGS: None. IMPRESSION: Right adnexal cystic mass measuring 8.7 cm. Recommend MRI for further evaluation Uterine calcifications, likely due to fibroids. Calcifications in the cervix, correlate clinically. Trace fluid in the endometrial canal, correlate clinically.
[2017-01-28 19:04] LABS: ALB/GLOB RATIO 1.2 (1.0-2.1); ALBUMIN 4.3 g/dL (3.5-5.0); CALCIUM 8.3 mg/dL (8.4-10.2); MAGNESIUM 2.2 MG/DL (1.6-2.3)
[2017-01-28 19:15] LABS: BASO # 0.1 K/uL (0.0-0.2); BASO % 1.1 % (0.0-2.0); EOS # 0.2 K/uL (0.0-0.7); EOS % 2.4 % (0.0-4.0); HEMOGLOBIN 8.6 g/dL (12.0-16.0); LYMPH # 1.1 K/uL (1.0-4.3); LYMPH % 15.6 % (20.0-40.0); MEAN CELL VOLUME 86.5 fl (81.0-99.0); MEAN CORPUSCULAR HEMOGLOBIN 29.3 pg (27.0-31.0); MEAN CORPUSCULAR HGB CONC 33.9 g/dL (33.0-37.0); MONO # 0.7 K/uL (0.0-0.8); MONO % 9.6 % (0.0-10.0); NEUT # 5.1 K/uL (1.8-7.0); NEUT % 71.3 % (50.0-75.0); NRBC % 0.2 % (0.0-0.0); RBC 2.93 Mil/uL (3.80-5.20); RED CELL DISTRIBUTION WIDTH 18.6 % (11.5-14.5); WHITE BLOOD COUNT 7.2 K/uL (4.8-10.8)
[2017-01-28 20:37] LABS: INR 1.3 (0.9-1.2); PARTIAL THROMBOPLASTIN TIME 32.6 Seconds (25.6-37.1); PROTHROMBIN TIME 12.9 Seconds (9.8-13.1)
--- NOTE | 2017-01-28 23:21 | US ---
EXAM: US Abdomen Limited, Right Upper Quadrant CLINICAL HISTORY: 66 years old, female; Abnormal findings; Abnormal lab test; Elevated liver enzymes; Prior surgery; Surgery date: 6+ months; Surgery type: S/P cholecystectomy; Additional info: Ruq pain elevated lfts S/P cholecystectomy TECHNIQUE: Real-time ultrasound of the right upper quadrant with image documentation. COMPARISON: No relevant prior studies available. FINDINGS: Liver: Enlarged, 20.2 cm. Fatty infiltration. No mass. No intrahepatic ductal dilatation. Gallbladder: Cholecystectomy. Common bile duct: No dilatation. No stones. Pancreas: Unremarkable as visualized. Right kidney: Normal echogenicity. No hydronephrosis. IMPRESSION: 1.No acute findings. 2.Non-acute findings are described above.
--- NOTE | 2017-01-29 10:09 | RAD ---
PROCEDURE: CHEST RADIOGRAPH, 1 VIEW HISTORY: admission COMPARISON: 01/27/2017. FINDINGS: LUNGS: There are low lung volumes which may be related to poor inspiratory effort. There is bibasilar atelectasis. PLEURA: No pneumothorax or pleural fluid seen. CARDIOVASCULAR: The cardiomediastinal silhouette is stable. OSSEOUS STRUCTURES: No significant abnormalities. VISUALIZED UPPER ABDOMEN: Normal. OTHER FINDINGS: None. IMPRESSION: No active pulmonary disease.
--- NOTE | 2017-01-29 10:32 | CARD ---
APPROVED REPORT EKG Measurement Heart [id number] <Conclusion> Sinus bradycardia Left axis deviation Left bundle branch block Abnormal ECG
== END 2017-01-28 23:04 | disposition left against medical advice (07) ==
LOC: H.ER 16:30 → H.ERHOLD 20:39 → UNDOADMIN 20:39
DX: R10.9 Unspecified abdominal pain (principal); D64.9 Anemia, unspecified; I12.0 Hypertensive chronic kidney disease with stage 5 chronic kidney disease or end stage renal disease; N18.6 End stage renal disease; Z99.2 Dependence on renal dialysis; R19.09 Other intra-abdominal and pelvic swelling, mass and lump; E78.00 Pure hypercholesterolemia, unspecified; E11.9 Type 2 diabetes mellitus without complications

== ENCOUNTER 2017-02-03 23:21 | Emergency (ER) | payer MEDICAID, MEDICARE, OTHER ==
[2017-02-03 23:21] VITALS: BMI 30.9
[2017-02-03 23:32] VITALS: BP 188/85; PULSE 58; RESP 18; TEMP 97.5; O2SAT 98
--- NOTE | 2017-02-04 00:17 | ED PDOC ---
HPI: General Adult Time Seen by Provider: 02/03/17 23:34 Chief Complaint (Nursing): Abdominal Pain History Per: Patient Additional Complaint(s): Pt. states she found out she had a mass in the R adnexa last week here in [facility] ED. She was advised to stay in the hospital as her HgB was low as well but she signed out AMA. She eventually saw Dr. Ulices Hollis who referred her to see Dr. Soledad Wilson another [employer] whom she has not seen yet but has a scheduled appointment on 03/14/2017. Pt. states she's also had non-bloody watery diarrhea x 2 days without any vomiting. Pt. is ESRD and goes to dialysis MWF. Denies fever, abdominal pain, dysuria, hematuria, chest pain. Past Medical History Reviewed: Historical Data, Nursing Documentation, Vital Signs Vital Signs: Last Vital Signs Temp 97.5 F L 02/03/17 23:29 Pulse 58 L 02/03/17 23:29 Resp 18 02/03/17 23:29 BP 188/85 H 02/03/17 23:29 Pulse Ox 98 02/04/17 00:26 - Medical History PMH: Anemia, Anxiety, Back Problems, CHF, Depression, Diabetes, Gall Bladder Disease, HTN, Hypercholesterolemia, Hypothyroidism, Peripheral Edema, Pneumonia , End Stage Renal Disease, Chronic Kidney Disease, Sleep Apnea, TIA (Right sided weakness) - Surgical History Surgical History: Cholecystectomy, Endoscopy, Tonsillectomy - Family History Family History: States: No Known Family Hx, Hypertension (mother and father) - Immunization History Hx Tetanus Toxoid Vaccination: No Hx Influenza Vaccination: No Hx Pneumococcal Vaccination: Yes - Home Medications Home Medications: Ambulatory Orders Medication Instructions Recorded Atenolol [Tenormin] 25 mg PO DAILY 01/21/17 Cephalexin [Keflex] 500 mg PO MWF #3 capsule 01/21/17 GlipiZIDE [Glucotrol] 5 mg PO DAILY 01/21/17 Neomycin/Polymyxin/Hydrocortis 4 drop OT QID #1 bottle 01/21/17 [Cortisporin Otic Susp] traMADol [Ultram] 50 mg PO Q12 PRN #10 tab 01/21/17 Cephalexin [Keflex] 250 mg PO Q12 #8 cap 01/27/17 Docusate Sodium [Colace] 1 tab PO BID #20 capsule 01/27/17 Metoclopramide [Reglan] 10 mg PO Q8 PRN #8 tab 01/27/17 - Allergies Allergies/Adverse Reactions: Allergies Allergy/AdvReac Type Severity Reaction Status Date / Time calcium acetate [From PhosLo] Allergy Severe hives Verified 01/23/17 04:31 glycerin Allergy Severe RASH Verified 01/23/17 04:31 Influenza Virus Vaccines Allergy Severe ANAPHYLAXIS Verified 01/23/17 04:31 levofloxacin Allergy Severe numbness Verified 01/23/17 04:31 propylene glycol Allergy Severe SWELLING Verified 01/23/17 04:31 sodium polystyrene sulfonate Allergy Severe SWELLING Verified 01/23/17 04:31 [From Kayexalate] ergocalciferol (vitamin D2) Allergy SWELLING Verified 01/23/17 04:31 [From Vitamin D2] tramadol AdvReac NAUSEA Verified 01/24/17 00:01 seafood Allergy Severe throat Uncoded 01/23/17 04:31 swelling Review of Systems ROS Statement: Except As Marked, All Systems Reviewed And Found Negative Physical Exam - Reviewed Nursing Documentation Reviewed: Yes Vital Signs Reviewed: Yes - Physical Exam Appears: Positive for: Well, Non-toxic, No Acute Distress Head Exam: Positive for: ATRAUMATIC, NORMAL INSPECTION, NORMOCEPHALIC Skin: Positive for: Normal Color, Warm. Negative for: Rash Eye Exam: Positive for: EOMI, Normal appearance, PERRL ENT: Positive for: Normal ENT Inspection Neck: Positive for: Normal, Painless ROM Cardiovascular/Chest: Positive for: Regular Rate, Rhythm Respiratory: Positive for: CNT, Normal Breath Sounds Gastrointestinal/Abdominal: Positive for: Normal Exam, Bowel Sounds, Soft. Negative for: Tenderness, Mass Back: Positive for: Normal Inspection. Negative for: L CVA Tenderness, R CVA Tenderness Extremity: Positive for: Normal ROM Neurologic/Psych: Positive for: Alert, Oriented - Laboratory Results Result Diagrams: 02/04/17 00:45 02/04/17 00:45 - ECG O2 Sat by Pulse Oximetry: 98 - Progress ED Course And Treament: Labs ordered. Glucose 351 Insulin 8units SC given. Repeat FSBS 378. Additional Insulin given. 2nd repeat FSBS: 316. Pt. requesting to be discharged. Case and labs d/w Dr. Garza prior to discharge and agrees with disposition. Instructed to go to dialysis tomorrow without fail and to f/u with Dr. Wilson for further evaluation of adnexal mass. Disposition - Clinical Impression Clinical Impression: ESRD (end stage renal disease) on dialysis, Diarrhea, Hyperglycemia - Patient ED Disposition Is Patient to be Admitted: No - Disposition Referrals: Renny Reyez [Outside] Disposition: Routine/Home Disposition Time: 02:52 Condition: IMPROVED Instructions: End Stage Kidney Disease (ED) Forms: [employer] (Gabonese) Print Language: NEPALI
[2017-02-04 01:03] LABS: ALB/GLOB RATIO 1.2 (1.0-2.1); BILIRUBIN,TOTAL 1.8 mg/dl (0.2-1.3); CALCIUM 8.1 mg/dL (8.4-10.2); POTASSIUM 4.2 MMOL/L (3.6-5.0); TOTAL PROTEIN 8.1 G/DL (6.3-8.2)
[2017-02-04 01:04] LABS: BASO # 0.1 K/uL (0.0-0.2); BASO % 1.2 % (0.0-2.0); EOS # 0.3 K/uL (0.0-0.7); EOS % 2.5 % (0.0-4.0); HEMATOCRIT 29.8 % (34.0-47.0); LYMPH # 1.7 K/uL (1.0-4.3); LYMPH % 16.7 % (20.0-40.0); MEAN CELL VOLUME 89.6 fl (81.0-99.0); MEAN CORPUSCULAR HEMOGLOBIN 29.7 pg (27.0-31.0); MEAN CORPUSCULAR HGB CONC 33.1 g/dL (33.0-37.0); MEAN PLATELET VOLUME 8.6 fl (7.2-11.7); MONO # 0.8 K/uL (0.0-0.8); NEUT # 7.4 K/uL (1.8-7.0); NEUT % 71.6 % (50.0-75.0); NRBC % 0.4 % (0.0-0.0); RED CELL DISTRIBUTION WIDTH 19.9 % (11.5-14.5); WHITE BLOOD COUNT 10.3 K/uL (4.8-10.8)
[2017-02-04] MEDS ORDERED: Insulin Regular 100 units/ml SC STA ×2 (01:25→02:17)
[2017-02-04] MEDS ORDERED: Insulin Regular 100 units/ml ONE ×2 (01:50→02:19)
--- NOTE | 2017-02-04 12:58 | CARD ---
APPROVED REPORT EKG Measurement Heart [id number] <Conclusion> Sinus bradycardia Possible Left atrial enlargement Left axis deviation Left bundle branch block Abnormal ECG
== END 2017-02-04 03:18 | disposition home or self-care (01) ==
LOC: H.ER 23:21
DX: N18.6 End stage renal disease (principal); Z99.2 Dependence on renal dialysis; E11.65 Type 2 diabetes mellitus with hyperglycemia; R19.7 Diarrhea, unspecified; F41.9 Anxiety disorder, unspecified; Z86.73 Personal history of transient ischemic attack (TIA), and cerebral infarction without residual deficits

== ENCOUNTER 2017-02-12 05:26 | Observation (INO) | payer MEDICARE, OTHER ==
[2017-02-12 05:27] VITALS: BMI 30.9
--- NOTE | 2017-02-12 06:21 | ED PDOC ---
HPI: General Adult Time Seen by Provider: 02/12/17 05:49 Chief Complaint (Nursing): Lower Extremity Problem/Injury Chief Complaint (Provider): Leg swelling, weakness History Per: Patient History/Exam Limitations: no limitations Onset/Duration Of Symptoms: Days Have you had recent travel within the past 21 days to any of the following countries: [place], [place], [place] or [place]?: No Current Symptoms Are (Timing): Still Present Severity: Moderate Additional History Per: Patient Additional Complaint(s): 66 y/o female here this morning with multiple complaints. She complains that her blood sugars have been over 300 for the last week in spite of her compliance with home medications. Patient also complains of feeling weak, and was trying to get out of her chair this morning, but she was not able to and she fell back into her chair. Denies any injury. Finally, patient complains that her legs have been swollen over the last week. She reports that she is not taking any diuretic as "they do not work for her." Patient reports that she is due for surgery for an abdominal tumor at the end of the month. She is not in the care of a PMD. Patient is a dialysis patient and is due for this tomorrow. No other complaints. Past Medical History Vital Signs: Last Vital Signs Temp 97.5 F L 02/12/17 05:45 Pulse 72 02/12/17 05:45 Resp 18 02/12/17 05:45 BP 154/71 H 02/12/17 05:45 Pulse Ox 96 02/12/17 06:46 - Medical History PMH: Anemia, Anxiety, Back Problems, CHF, Depression, Diabetes, Gall Bladder Disease, HTN, Hypercholesterolemia, Hypothyroidism, Peripheral Edema, Pneumonia , End Stage Renal Disease, Chronic Kidney Disease, Sleep Apnea, TIA (Right sided weakness) Other PMH: CKD - Surgical History Surgical History: Cholecystectomy, Endoscopy, Tonsillectomy - Family History Family History: States: Unknown Family Hx, Hypertension (mother and father) - Immunization History Hx Tetanus Toxoid Vaccination: No Hx Influenza Vaccination: No Hx Pneumococcal Vaccination: Yes - Home Medications Home Medications: Ambulatory Orders Medication Instructions Recorded Atenolol [Tenormin] 25 mg PO DAILY 01/21/17 GlipiZIDE [Glucotrol] 5 mg PO DAILY 01/21/17 Neomycin/Polymyxin/Hydrocortis 4 drop OT QID #1 bottle 01/21/17 [Cortisporin Otic Susp] traMADol [Ultram] 50 mg PO Q12 PRN #10 tab 01/21/17 - Allergies Allergies/Adverse Reactions: Allergies Allergy/AdvReac Type Severity Reaction Status Date / Time calcium acetate [From PhosLo] Allergy Severe hives Verified 01/23/17 04:31 glycerin Allergy Severe RASH Verified 01/23/17 04:31 Influenza Virus Vaccines Allergy Severe ANAPHYLAXIS Verified 01/23/17 04:31 levofloxacin Allergy Severe numbness Verified 01/23/17 04:31 propylene glycol Allergy Severe SWELLING Verified 01/23/17 04:31 sodium polystyrene sulfonate Allergy Severe SWELLING Verified 01/23/17 04:31 [From Kayexalate] ergocalciferol (vitamin D2) Allergy SWELLING Verified 01/23/17 04:31 [From Vitamin D2] tramadol AdvReac NAUSEA Verified 01/24/17 00:01 seafood Allergy Severe throat Uncoded 01/23/17 04:31 swelling Review of Systems ROS Statement: Except As Marked, All Systems Reviewed And Found Negative Neurological: Positive for: Weakness Physical Exam - Reviewed Nursing Documentation Reviewed: Yes Vital Signs Reviewed: Yes - Physical Exam Appears: Positive for: Well, Non-toxic, No Acute Distress Head Exam: Positive for: ATRAUMATIC, NORMAL INSPECTION, NORMOCEPHALIC Skin: Positive for: Normal Color, Warm, DRY Eye Exam: Positive for: EOMI, Normal appearance, PERRL ENT: Positive for: Normal ENT Inspection Neck: Positive for: Normal, Painless ROM Cardiovascular/Chest: Positive for: Regular Rate, Rhythm Respiratory: Positive for: Crackles (bilateral, scattered) Gastrointestinal/Abdominal: Positive for: Bowel Sounds, Soft, Other ( protuberant ) Back: Positive for: Normal Inspection Extremity: Positive for: Normal ROM, Swelling (2+ pitting edema at the knees ) Neurologic/Psych: Positive for: Alert, Oriented - Laboratory Results Result Diagrams: 02/12/17 06:22 - ECG O2 Sat by Pulse Oximetry: 96 (RA) Pulse Ox Interpretation: Normal Medical Decision Making Medical Decision Making: Impression: 66 y/o female CKD and CHF. Plan: - Labs - CXR - Benadryl - EKG - CT Abdomen/Pelvis d/t history of right ovarian mass. 700: Will sign patient out to Dr. Ray pending workup. Scribe Attestation Documented by Ysabel Alexander acting as a scribe for Dr. Marty Armendariz. Provider Attestation: All medical record entries made by the Scribe were at my direction and personally dictated by me. I have reviewed the chart and agree that the record accurately reflects my personal performance of the history, physical exam, medical decision making, and the department course for this patient. I have also personally directed, reviewed, and agree with the discharge instructions and disposition. Disposition - Clinical Impression Clinical Impression: Abdominal pain, Leg swelling - Disposition Referrals: Daxa Leong MD [Primary Care Provider] - Disposition: Transfer of Care Disposition Time: 07:00 Condition: STABLE Forms: [facility] ([place]) Patient Signed Over To: Christina Ray Handoff Comments: pending workup.
[2017-02-12 06:36] LABS: BASO # 0.1 K/uL (0.0-0.2); BASO % 0.6 % (0.0-2.0); EOS # 0.5 K/uL (0.0-0.7); HEMATOCRIT 32.3 % (34.0-47.0); LYMPH # 1.2 K/uL (1.0-4.3); LYMPH % 11.1 % (20.0-40.0); MEAN CELL VOLUME 94.1 fl (81.0-99.0); MEAN CORPUSCULAR HEMOGLOBIN 30.5 pg (27.0-31.0); MEAN CORPUSCULAR HGB CONC 32.4 g/dL (33.0-37.0); MEAN PLATELET VOLUME 10.8 fl (7.2-11.7); MONO # 0.8 K/uL (0.0-0.8); MONO % 7.7 % (0.0-10.0); NEUT # 8.1 K/uL (1.8-7.0); NEUT % 75.6 % (50.0-75.0); NRBC % 0.2 % (0.0-0.0); RED CELL DISTRIBUTION WIDTH 23.1 % (11.5-14.5); WHITE BLOOD COUNT 10.8 K/uL (4.8-10.8)
[2017-02-12 06:38] LABS: CALCIUM 8.2 mg/dL (8.4-10.2)
[2017-02-12 07:07] LABS: TROPONIN I 1.49 ng/mL (0.00-0.120)
--- NOTE | 2017-02-12 07:20 | ED PDOC ---
- Laboratory Results Result Diagrams: 02/12/17 06:22 02/12/17 06:22 - ECG O2 Sat by Pulse Oximetry: 96 (RA) Medical Decision Making Medical Decision Makin -Patient was given to me by Dr. Armendariz 0732 -Pending rest of labs and reevaluation. 0751 -Abd & Pelvis w/o PO or IV contrast [CT] ordered 0957 Abdomen/Pelvis CT FINDINGS: LOWER THORAX: Trace dependent atelectasis in the right lower lobe base with linear atelectasis or fibrosis noted at the left base. Cardiomegaly appears stable. LIVER: Infrequent punctate granulomata are seen associated with the right and left lobes liver which is otherwise homogeneous and unremarkable. GALLBLADDER AND BILE DUCTS: Prior cholecystectomy again evident. No gross common bile duct dilatation appreciated. PANCREAS: Unremarkable. No gross lesion or ductal dilatation. SPLEEN: Unremarkable. ADRENALS: The right adrenal gland appears unremarkable. 1.6 cm nodule is questioned related to the left adrenal gland versus adjacent lymph node possibly. Follow- up MRI is advised if there is no contraindication. KIDNEYS AND URETERS: Nonspecific streaky perinephric perinephric changes appear stable no obstructive uropathy or radiodense urolithiasis identified bilaterally. VASCULATURE: Unremarkable. No aortic aneurysm. BOWEL: [id number] fecal loading is seen throughout the colon. The lack of oral contrast limits bowel evaluation overall as well as the stomach. No obstruction. No gross mural thickening. APPENDIX: Unremarkable. Normal appendix. PERITONEUM: A tiny umbilical hernia is identified containing only fat. Trace perihepatic and pelvic ascites is identified. No free intrarenal gas. . LYMPH NODES: Unremarkable. No enlarged lymph nodes. BLADDER: Unremarkable. REPRODUCTIVE: A simple appearing right adnexal cyst measures 2 Hounsfield units and 7.9 x 8.8 x 8.7 cm (transverse by anteroposterior by superoinferior dimensions). The previously measured 8.4 x 8.1 x 8.3 cm and is slightly larger in the interval, limited evaluation due to lack of contrast administration. Fibroid related uterine calcifications are again identified with the left adnexal compartment unremarkable grossly. BONES: Gross degenerative endplate changes are stable at the L2-3 disc interspace level with multilevel thoracic spondylosis identified. OTHER FINDINGS: Streaky edema is appreciated the bilateral flanks and lower abdomen segments of the abdominal wall. IMPRESSION: 1. No bowel or urinary tract obstruction or free intraperitoneal gas is identified however trace perihepatic and pelvic fluid is seen of uncertain origin. 2. Prior cholecystectomy again evident. 3. Possible 1.6 cm left adrenal nodule or adjacent lymph node in the interval. Follow-up confucianism shift MRI through the adrenal glands is advised to exclude potential malignancy. 4. 8.8 cm right adnexal cyst mildly increased in size compared 8.[address] exam[address] Further clinical correlation is advised. -Reviewed labs, patient appears to have UTI and elevated troponin. pt is ESRD w generalized weakness and uti admit to medical quar[facility] supervisor [facility] Dr. Knott (pt currently without primary doc) discussed w patient and family and they want pt admitted as well [address] Knott, no response since then 1056 Chest X-ray FINDINGS: LUNGS: No acute infiltrate identified. PLEURA: No pneumothorax or pleural fluid seen. CARDIOVASCULAR: Cardiomegaly is stable. No pulmonary vascular derangement identified. Remaining mediastinal anatomy is unchanged as well. OSSEOUS STRUCTURES: No significant abnormalities. VISUALIZED UPPER ABDOMEN: Normal. OTHER FINDINGS: None. IMPRESSION: Stable cardiomegaly. No acute cardiopulmonary is appreciated at this time. Disposition - Clinical Impression Clinical Impression: Abdominal pain, Leg swelling, UTI (urinary tract infection) - POA Present On Arrival: None - Disposition Disposition: Admitted as In-Patient Disposition Time: 10:00 Condition: STABLE
[2017-02-12 07:44] LABS: PARTIAL THROMBOPLASTIN TIME 30.3 Seconds (25.6-37.1)
[2017-02-12 08:04] LABS: ALB/GLOB RATIO 1.2 (1.0-2.1); BILIRUBIN,TOTAL 1.9 mg/dl (0.2-1.3)
[2017-02-12 08:12] LABS: RBC URINE 12 /hpf (0-3); URINE BACTERIA OCC (<OCC); URINE BILIRUBIN NEGATIVE (NEGATIVE); URINE BLOOD SMALL (NEGATIVE); URINE COLOR AMBER (YELLOW); URINE GLUCOSE (UA) >=500 mg/dL (Normal); URINE KETONE TRACE mg/dL (NEGATIVE); URINE LEUKOCYTE ESTERASE TRACE Leu/uL (Negative); URINE PROTEIN >=500 mg/dL (NEGATIVE); URINE UROBILINOGEN 0.2-1.0 mg/dL (0.2-1.0); WBC URINE 31 /hpf (0-5)
--- NOTE | 2017-02-12 09:29 | CT ---
PROCEDURE: CT Abdomen and Pelvis without intravenous contrast HISTORY: generalize weak COMPARISON: None. TECHNIQUE: Helical CT of the abdomen and pelvis was performed without oral or intravenous contrast as requested.. Contrast Dose: None Radiation dose: Total exam DLP = 1526 mGy-cm. This CT exam was performed using one or more of the following dose reduction techniques: Automated exposure control, adjustment of the mA and/or kV according to patient size, and/or use of iterative reconstruction technique. FINDINGS: LOWER THORAX: Trace dependent atelectasis in the right lower lobe base with linear atelectasis or fibrosis noted at the left base. Cardiomegaly appears stable. LIVER: Infrequent punctate granulomata are seen associated with the right and left lobes liver which is otherwise homogeneous and unremarkable. GALLBLADDER AND BILE DUCTS: Prior cholecystectomy again evident. No gross common bile duct dilatation appreciated. PANCREAS: Unremarkable. No gross lesion or ductal dilatation. SPLEEN: Unremarkable. ADRENALS: The right adrenal gland appears unremarkable. 1.6 cm nodule is questioned related to the left adrenal gland versus adjacent lymph node possibly. Follow-up MRI is advised if there is no contraindication. KIDNEYS AND URETERS: Nonspecific streaky perinephric perinephric changes appear stable no obstructive uropathy or radiodense urolithiasis identified bilaterally. VASCULATURE: Unremarkable. No aortic aneurysm. BOWEL: [id number] fecal loading is seen throughout the colon. The lack of oral contrast limits bowel evaluation overall as well as the stomach. No obstruction. No gross mural thickening. APPENDIX: Unremarkable. Normal appendix. PERITONEUM: A tiny umbilical hernia is identified containing only fat. Trace perihepatic and pelvic ascites is identified. No free intrarenal gas. . LYMPH NODES: Unremarkable. No enlarged lymph nodes. BLADDER: Unremarkable. REPRODUCTIVE: A simple appearing right adnexal cyst measures 2 Hounsfield units and 7.9 x 8.8 x 8.7 cm (transverse by anteroposterior by superoinferior dimensions). The previously measured 8.4 x 8.1 x 8.3 cm and is slightly larger in the interval, limited evaluation due to lack of contrast administration. Fibroid related uterine calcifications are again identified with the left adnexal compartment unremarkable grossly. BONES: Gross degenerative endplate changes are stable at the L2-3 disc interspace level with multilevel thoracic spondylosis identified. OTHER FINDINGS: Streaky edema is appreciated the bilateral flanks and lower abdomen segments of the abdominal wall. IMPRESSION: 1. No bowel or urinary tract obstruction or free intraperitoneal gas is identified however trace perihepatic and pelvic fluid is seen of uncertain origin. 2. Prior cholecystectomy again evident. 3. Possible 1.6 cm left adrenal nodule or adjacent lymph node in the interval. Follow-up sabianism shift MRI through the adrenal glands is advised to exclude potential malignancy. 4. 8.8 cm right adnexal cyst mildly increased in size compared 8.4 cm in 03/05/2016 CT exam. Further clinical correlation is advised.
[2017-02-12] MEDS ORDERED: cefTRIAXone (Rocephin) 1 gm Inj ONE (10:14)
--- NOTE | 2017-02-12 10:58 | RAD ---
PROCEDURE: CHEST RADIOGRAPH, 1 VIEW HISTORY: LE swelling COMPARISON: Chest radiograph 01/28/2017 FINDINGS: LUNGS: No acute infiltrate identified. PLEURA: No pneumothorax or pleural fluid seen. CARDIOVASCULAR: Cardiomegaly is stable. No pulmonary vascular derangement identified. Remaining mediastinal anatomy is unchanged as well. OSSEOUS STRUCTURES: No significant abnormalities. VISUALIZED UPPER ABDOMEN: Normal. OTHER FINDINGS: None. IMPRESSION: Stable cardiomegaly. No acute cardiopulmonary is appreciated at this time.
[2017-02-12] MEDS ORDERED: Nitroglycerin 2% Ointment Foilpak UD TOP ONE (19:20)
[2017-02-12] MEDS: Nitroglycerin 2% Ointment Foilpak UD TOP SCH (22:07)
[2017-02-12] MEDS: Insulin Regular 100 units/ml SC SCH (22:08)
--- NOTE | 2017-02-12 23:35 | CARD ---
APPROVED REPORT EKG Measurement Heart [id number] MI [id number] <Conclusion> Normal sinus rhythm Possible Left atrial enlargement Left axis deviation Left bundle branch block Abnormal ECG
[2017-02-13] MEDS: Nitroglycerin 2% Ointment Foilpak UD TOP SCH ×3 (03:49→17:00)
[2017-02-13] MEDS: Insulin Regular 100 units/ml SC SCH ×3 (06:35→17:00)
[2017-02-13] MEDS ORDERED: Enoxaparin 30 mg Syringe SC SCH (09:00)
--- NOTE | 2017-02-13 10:21 | CP.PCM.CON ---
History of Present Illness - History of Present Illness History of Present Illness: 66 y/o female here this morning with multiple complaints. She complains that her blood sugars have been over 300 for the last week in spite of her compliance with home medications. Patient also complains of feeling weak, and was trying to get out of her chair this morning, but she was not able to and she fell back into her chair. Denies any injury. Finally, patient complains that her legs have been swollen over the last week. She reports that she is not taking any diuretic as "they do not work for her." Patient reports that she is due for surgery for an abdominal tumor at the end of the month. She is not in the care of a PMD. Patient is a dialysis patient and is due for this tomorrow. No other complaints. Pt denies chest pain/sob/palpitations MH: Anemia, Anxiety, Back Problems, CHF, Depression, Diabetes, Gall Bladder Disease, HTN, Hypercholesterolemia, Hypothyroidism, Peripheral Edema, Pneumonia, End Stage Renal Disease, Chronic Kidney Disease, Sleep Apnea, TIA (Right sided weakness) Other PMH: CKD - Surgical History Surgical History: Cholecystectomy, Endoscopy, Tonsillectomy EKG: NSR, CLBBB Troponin: elevated ( most likely secondary to CRF) Creatinine: 6.2 BNP: 105,000 Past Patient History - Infectious Disease Hx of Infectious Diseases: None - Past Medical History & Family History Past Medical History?: Yes - Past Social History Smoking Status: Never Smoked - CARDIAC Hx Cardiac Disorders: Yes (CHF, high cholesterol, HTN, peripheral edema) - PULMONARY Hx Respiratory Disorders: Yes (Pneumonia, sleep apnea) - NEUROLOGICAL Hx Neurological Disorder: Yes (TIA) - HEENT Hx HEENT Problems: No - RENAL Hx Chronic Kidney Disease: Yes (Chronic kidney disease, HD) - ENDOCRINE/METABOLIC Hx Endocrine Disorders: Yes (DM, hypothyroidism) - HEMATOLOGICAL/ONCOLOGICAL Hx Blood Disorders: Yes (Anemia) - INTEGUMENTARY Hx Dermatological Problems: No - MUSCULOSKELETAL/RHEUMATOLOGICAL Hx Musculoskeletal Disorders: Yes (Back pain) - GASTROINTESTINAL Hx Gall Bladder Disease: Yes - GENITOURINARY/GYNECOLOGICAL Hx Genitourinary Disorders: No Other/Comment: RIGHT SIDED MASS IN UTERUS - PSYCHIATRIC Hx Psychophysiologic Disorder: Yes (Anxiety, Deoression) - SURGICAL HISTORY Hx Arteriovenous Shunt: Yes (left arm) Hx Cholecystectomy: Yes Hx Tonsillectomy: Yes - ANESTHESIA Hx Anesthesia: Yes Hx Anesthesia Reactions: No Hx Malignant Hyperthermia: No Meds Home Medications: Home Medication List Medication Instructions Recorded Confirmed Type Aspirin [Aspirin Chewable] 81 mg PO DAILY 02/13/17 Rx DiphenhydrAMINE [Benadryl] 25 mg PO Q8 PRN cap 02/13/17 Rx Allergies/Adverse Reactions: Allergies Allergy/AdvReac Type Severity Reaction Status Date / Time calcium acetate [From PhosLo] Allergy Severe hives Verified 01/23/17 04:31 glycerin Allergy Severe RASH Verified 01/23/17 04:31 Influenza Virus Vaccines Allergy Severe ANAPHYLAXIS Verified 01/23/17 04:31 levofloxacin Allergy Severe numbness Verified 01/23/17 04:31 propylene glycol Allergy Severe SWELLING Verified 01/23/17 04:31 sodium polystyrene sulfonate Allergy Severe SWELLING Verified 01/23/17 04:31 [From Kayexalate] ergocalciferol (vitamin D2) Allergy SWELLING Verified 01/23/17 04:31 [From Vitamin D2] tramadol AdvReac NAUSEA Verified 01/24/17 00:01 seafood Allergy Severe throat Uncoded 01/23/17 04:31 swelling - Medications Medications: Current Medications Aspirin (Aspirin Chewable) 81 mg PO DAILY [facility] Last Admin: 02/13/17 09:54 Dose: 81 mg Atenolol (Tenormin) 25 mg PO DAILY [facility] Last Admin: 02/13/17 09:55 Dose: Not Given Diphenhydramine HCl (Benadryl) 25 mg PO Q8 PRN PRN Reason: Itching / Pruritus Last Admin: 02/12/17 22:26 Dose: 25 mg Enoxaparin Sodium (Lovenox) 30 mg SC DAILY [facility] PRN Reason: Protocol Last Admin: 02/13/17 09:54 Dose: Not Given Glipizide (Glucotrol) 5 mg PO DAILY [facility] Last Admin: 02/13/17 09:54 Dose: 5 mg Insulin Human Regular (Humulin R) 0 units SC ACHS [facility] PRN Reason: Protocol Last Admin: 02/13/17 06:35 Dose: 1 unit Nitroglycerin (Nitro-Bid 2% Oint) 1 ea TOP Q6 [facility] Last Admin: 02/13/17 09:54 Dose: Not Given Physical Exam - Constitutional Appears: Well - Head Exam Head Exam: NORMAL INSPECTION - Eye Exam Eye Exam: Normal appearance - ENT Exam ENT Exam: Normal Exam - Neck Exam Neck exam: Positive for: Normal Inspection - Respiratory Exam Respiratory Exam: NORMAL BREATHING PATTERN - Cardiovascular Exam Cardiovascular Exam: REGULAR RHYTHM Results - Vital Signs Recent Vital Signs: Last Vital Signs Temp 97.7 F 02/13/17 08:08 Pulse 68 02/13/17 08:08 Resp 20 02/13/17 08:08 BP 157/79 H 02/13/17 08:08 Pulse Ox 98 02/13/17 08:08 - Labs Result Diagrams: 02/12/17 06:22 02/12/17 06:22 Labs: Laboratory Results - last 24 hr 02/12/17 02/12/17 02/12/17 12:10 15:48 18:05 POC Glucose (mg/dL) 244 H 211 H Troponin I 1.7600 H* 02/12/17 02/13/17 21:35 05:25 POC Glucose (mg/dL) 222 H 191 H Troponin I Assessment & Plan (1) Chronic kidney disease requiring chronic dialysis Status: Acute (2) Diabetes mellitus Status: Acute (3) ESRD (end stage renal disease) on dialysis Status: Acute (4) Elevated troponin level Assessment and Plan: Elevated troponin levels are secondary to ESRD and CHF Cardiac ivan the pt appears stable Status: Acute
--- NOTE | 2017-02-13 10:47 | CP.PCM.CON ---
History of Present Illness - History of Present Illness History of Present Illness: This patient who is 66 years of age Admitted for abdominal pain and she has what appears to be mass in the lower abdomen and she said she was scheduled to have surgery . Patient known to me with end-stage renal disease on hemodialysis 3 times a week patient had dialysis the day before yesterday on Saturday her scheduled usually Saturday Patient very noncompliance she comes to the hospital about 10 days ago when she left next morning and previously she was in the hospital in the past couple of time she is and cooperative refusing dialysis at that time using many medications However now her daughter at the bedside and she complaining of leg swollen I was trying to take U need dialysis to take more fluid and she absolutely refused and she is telling me she take only to any half hours dialysis as outpatient and she will not go for more 2.5h hours absolutely Past medical history Anemia, Anxiety, Back Problems, CHF, Depression, Diabetes, Gall Bladder Disease, HTN, Hypercholesterolemia, Hypothyroidism, Peripheral Edema, Pneumonia, End Stage Renal Disease, , Sleep Apnea, TIA (Right sided weakness) Review of Systems - Constitutional Constitutional: As Per HPI - Cardiovascular Cardiovascular: Pedal Edema. absent: Chest Pain, Dyspnea - Respiratory Respiratory: absent: Cough - Gastrointestinal Gastrointestinal: As Per HPI, Abdominal Pain, Bloating - Genitourinary Genitourinary: As Per HPI - Musculoskeletal Musculoskeletal: Muscle Weakness - Neurological Neurological: As Per HPI - Psychiatric Psychiatric: As Per HPI Past Patient History - Infectious Disease Hx of Infectious Diseases: None - Past Medical History & Family History Past Medical History?: Yes - Past Social History Smoking Status: Never Smoked - CARDIAC Hx Cardiac Disorders: Yes (CHF, high cholesterol, HTN, peripheral edema) - PULMONARY Hx Respiratory Disorders: Yes (Pneumonia, sleep apnea) - NEUROLOGICAL Hx Neurological Disorder: Yes (TIA) - HEENT Hx HEENT Problems: No - RENAL Hx Chronic Kidney Disease: Yes (Chronic kidney disease, HD) - ENDOCRINE/METABOLIC Hx Endocrine Disorders: Yes (DM, hypothyroidism) - HEMATOLOGICAL/ONCOLOGICAL Hx Blood Disorders: Yes (Anemia) - INTEGUMENTARY Hx Dermatological Problems: No - MUSCULOSKELETAL/RHEUMATOLOGICAL Hx Musculoskeletal Disorders: Yes (Back pain) - GASTROINTESTINAL Hx Gall Bladder Disease: Yes - GENITOURINARY/GYNECOLOGICAL Hx Genitourinary Disorders: No Other/Comment: RIGHT SIDED MASS IN UTERUS - PSYCHIATRIC Hx Psychophysiologic Disorder: Yes (Anxiety, Deoression) - SURGICAL HISTORY Hx Arteriovenous Shunt: Yes (left arm) Hx Cholecystectomy: Yes Hx Tonsillectomy: Yes - ANESTHESIA Hx Anesthesia: Yes Hx Anesthesia Reactions: No Hx Malignant Hyperthermia: No Meds Allergies/Adverse Reactions: Allergies Allergy/AdvReac Type Severity Reaction Status Date / Time calcium acetate [From PhosLo] Allergy Severe hives Verified 01/23/17 04:31 glycerin Allergy Severe RASH Verified 01/23/17 04:31 Influenza Virus Vaccines Allergy Severe ANAPHYLAXIS Verified 01/23/17 04:31 levofloxacin Allergy Severe numbness Verified 01/23/17 04:31 propylene glycol Allergy Severe SWELLING Verified 01/23/17 04:31 sodium polystyrene sulfonate Allergy Severe SWELLING Verified 01/23/17 04:31 [From Kayexalate] ergocalciferol (vitamin D2) Allergy SWELLING Verified 01/23/17 04:31 [From Vitamin D2] tramadol AdvReac NAUSEA Verified 01/24/17 00:01 seafood Allergy Severe throat Uncoded 01/23/17 04:31 swelling - Medications Medications: Current Medications Aspirin (Aspirin Chewable) 81 mg PO DAILY [facility] Last Admin: 02/13/17 09:54 Dose: 81 mg Atenolol (Tenormin) 25 mg PO DAILY [facility] Last Admin: 02/13/17 09:55 Dose: Not Given Diphenhydramine HCl (Benadryl) 25 mg PO Q8 PRN PRN Reason: Itching / Pruritus Last Admin: 02/12/17 22:26 Dose: 25 mg Enoxaparin Sodium (Lovenox) 30 mg SC DAILY [facility] PRN Reason: Protocol Last Admin: 02/13/17 09:54 Dose: Not Given Glipizide (Glucotrol) 5 mg PO DAILY [facility] Last Admin: 02/13/17 09:54 Dose: 5 mg Insulin Human Regular (Humulin R) 0 units SC ACHS [facility] PRN Reason: Protocol Last Admin: 02/13/17 06:35 Dose: 1 unit Nitroglycerin (Nitro-Bid 2% Oint) 1 ea TOP Q6 [facility] Last Admin: 02/13/17 09:54 Dose: Not Given Physical Exam - Constitutional Appears: No Acute Distress - Eye Exam Eye Exam: absent: Nystagmus - ENT Exam ENT Exam: Mucous Membranes Moist - Respiratory Exam Respiratory Exam: NORMAL BREATHING PATTERN - GI/Abdominal Exam GI & Abdominal Exam: Normal Bowel Sounds - Extremities Exam Extremities exam: Negative for: calf tenderness - Back Exam Back exam: absent: CVA tenderness (L), CVA tenderness (R) - Neurological Exam Neurological exam: Alert Results - Vital Signs Recent Vital Signs: Last Vital Signs Temp 97.7 F 02/13/17 08:08 Pulse 68 02/13/17 08:08 Resp 20 02/13/17 08:08 BP 157/79 H 02/13/17 08:08 Pulse Ox 98 02/13/17 08:08 - Labs Result Diagrams: 02/12/17 06:22 02/12/17 06:22 Labs: Laboratory Results - last 24 hr 02/12/17 02/12/17 02/12/17 12:10 15:48 18:05 POC Glucose (mg/dL) 244 H 211 H Troponin I 1.7600 H* 02/12/17 02/13/17 21:35 05:25 POC Glucose (mg/dL) 222 H 191 H Troponin I Assessment & Plan (1) Chronic kidney disease requiring chronic dialysis Assessment and Plan: End stage renal disease on maintenance hemodialysis Saturday Patient noncooperative at [facility] difficult her daughter even more difficult than her Patient is given showers of complaining about the dialysis unit [facility] Patient name 3-1/2 hours dialysis to 4 hours she absolutely positively refused she will do 2.5 hours, she absolutely refused to remove fluid and 1500 mL despite that leg edema She is refusing EPO Status: Acute (2) Abdominal pain Status: Acute (3) Leg swelling Status: Acute (4) Acute kidney injury superimposed on chronic kidney disease Status: Acute
[2017-02-13 12:34] VITALS: O2SAT 97
[2017-02-13 15:51] VITALS: BP 167/81; PULSE 78; RESP 20; TEMP 97.3
--- NOTE | 2017-02-13 18:32 | HP ---
HISTORY OF PRESENT ILLNESS: Ms. Eid is a 66-year old female who was admitted via the emergency room with multiple complaints including elevated blood sugar, generalized weakness, swelling of the legs, generalized body aches and pains for the past several weeks prior to presentation and also on day of admission. She indicates that she has been taking a lot of medications and they do not work. She says her doctors give her to many medicine and she is refusing to take anymore medications. She reports that she is due for abdominal surgery for some tumor at the end of the month under the care of primary care physician. She also has chronic renal failure and is on hemodialysis. PAST MEDICAL HISTORY: Remarkable for anemia, anxiety disorder, back problems, congestive heart failure, depression, diabetes mellitus, gallbladder disease, hypertension, hyperlipidemia, hypothyroidism, peripheral edema of the legs, pneumonia, renal failure, sleep apnea, TIA in the past. FAMILY HISTORY: Nonrevealing. SOCIAL HISTORY: Denies smoking or alcohol use and indicate that she lives at home with her daughter. She is on multiple medications. PHYSICAL EXAMINATION: GENERAL: The patient is a somewhat apprehensive, but is alert and oriented. She is refusing to take her mediations while in hospital. VITAL SIGNS: Remarkable for blood pressure of 167/93, pulse of 68, respiratory rate 19, she is afebrile, O2 saturation 98% on room air. She is obese. HEENT: Pupils are equal and reactive to light and accommodation. JVP flat. Mouth shows fair hygiene. BREASTS: Normal. LUNGS: Fair aeration bilaterally. HEART: Regular. ABDOMEN: Distended. No organomegaly appreciated, but some right lower quadrant tenderness. EXTREMITIES: Shows 2+ pitting pedal edema. GENITALIA: Deferred. RECTAL: Deferred. CENTRAL NERVOUS SYSTEMS: No gross deficits appreciated. LABORATORY DATA: Remarkable for WBC 10.8, hemoglobin 10.5, and platelet count of 288,000. Sodium 136, potassium 5.1, BUN of 69, creatinine of 6.2, serum glucose 244, troponin 1.49 up to 1.76. IMPRESSION: This lady with history of end-stage renal disease with elevated troponin levels with acute coronary syndrome, pedal edema, probably secondary to real failure on fluid overload. History of diabetes mellitus. History of hypertension. History of sleep apnea syndrome. History of hyperlipidemia. History of hypertension. History of chronic anemia and depression. PLAN: Cardiac evaluation regarding the level of troponin, would hemodialyze patient today. She is refusing to stay in the hospital and take her medications. We will have case discussed with patient's daughter regarding compliance. Further therapy will depend on findings. Reid Knott MD
== END 2017-02-13 18:39 | disposition home or self-care (01) ==
LOC: H.ER 05:26 → INTOOBSV 10:00 → H.ERHOLD 10:00 → H.TEL 20:29
PROVIDERS: ADMIT Internal Medicine Pulmonary Disease; ATTEND Internal Medicine Pulmonary Disease
DX: N17.9 Acute kidney failure, unspecified (principal); I13.2 Hypertensive heart and chronic kidney disease with heart failure and with stage 5 chronic kidney disease, or end stage renal disease; I50.9 Heart failure, unspecified; N18.6 End stage renal disease; Z86.73 Personal history of transient ischemic attack (TIA), and cerebral infarction without residual deficits; E03.9 Hypothyroidism, unspecified; G47.30 Sleep apnea, unspecified; E78.5 Hyperlipidemia, unspecified; E78.00 Pure hypercholesterolemia, unspecified; F32.9 Major depressive disorder, single episode, unspecified; F41.9 Anxiety disorder, unspecified; E11.22 Type 2 diabetes mellitus with diabetic chronic kidney disease; Z88.7 Allergy status to serum and vaccine; D64.9 Anemia, unspecified; Z99.2 Dependence on renal dialysis; N39.0 Urinary tract infection, site not specified
CPT/HCPCS: 36415; 71010; 74176; 80048; 80074; 80076; 81003; 82948; 83880; 83970; 84100; 84484; 85025; 85610; 85730; 87040; 93005; 96365; 99285; G0378; J0696

== ENCOUNTER 2017-02-22 06:21 | Inpatient (IN) | payer MEDICARE, OTHER ==
[2017-02-22 06:21] VITALS: BMI 30.9
--- NOTE | 2017-02-22 07:29 | ED PDOC ---
HPI: SOB/CHF/COPD Time Seen by Provider: 02/22/17 07:01 Chief Complaint (Nursing): Trauma Chief Complaint (Provider): Shortness of Breath History Per: Patient History/Exam Limitations: no limitations Onset/Duration Of Symptoms: Days (x2) Current Symptoms Are (Timing): Still Present Additional Complaint(s): Sharifa Eid is a 66 year old female with a past medical history of end stage renal disease, dialysis dependent, and ovarian cyst presenting to the ED for an evaluation of increasing shortness of breath associated with swelling of her entire body worsening over the past 2 days prior to arrival. The patient reports her last dialysis treatment was on Saturday, but she was unable to complete dialysis. She denies chest pain, fever, and cough. PMD: Michael Lombardi MD Past Medical History Reviewed: Historical Data, Nursing Documentation, Vital Signs Vital Signs: Last Vital Signs Temp 97.8 F 02/22/17 06:39 Pulse 74 02/22/17 06:39 Resp 18 02/22/17 06:39 BP 143/51 L 02/22/17 06:39 Pulse Ox 97 02/22/17 07:33 - Medical History PMH: Anemia, Anxiety, Back Problems, CHF, Depression, Diabetes, Gall Bladder Disease, HTN, Hypercholesterolemia, Hypothyroidism, Peripheral Edema, Pneumonia , End Stage Renal Disease, Chronic Kidney Disease (Chronic kidney disease, HD), Sleep Apnea, TIA Denies: HIV Other PMH: ovarian cyst - Surgical History Surgical History: Cholecystectomy, Endoscopy, Tonsillectomy - Family History Family History: States: Unknown Family Hx, Hypertension (mother and father) - Social History Current smoker - smoking cessation education provided: No Ex-Smoker (has not smoked in the last 12 months): No Alcohol: None Drugs: Denies - Immunization History Hx Tetanus Toxoid Vaccination: No Hx Influenza Vaccination: No Hx Pneumococcal Vaccination: Yes - Home Medications Home Medications: Ambulatory Orders Medication Instructions Recorded Atenolol [Tenormin] 25 mg PO DAILY 01/21/17 GlipiZIDE [Glucotrol] 5 mg PO DAILY 01/21/17 Neomycin/Polymyxin/Hydrocortis 4 drop OT QID #1 bottle 01/21/17 [Cortisporin Otic Susp] Aspirin [Aspirin Chewable] 81 mg PO DAILY 02/13/17 DiphenhydrAMINE [Benadryl] 25 mg PO Q8 PRN cap 02/13/17 - Allergies Allergies/Adverse Reactions: Allergies Allergy/AdvReac Type Severity Reaction Status Date / Time calcium acetate [From PhosLo] Allergy Severe hives Verified 01/23/17 04:31 glycerin Allergy Severe RASH Verified 01/23/17 04:31 Influenza Virus Vaccines Allergy Severe ANAPHYLAXIS Verified 01/23/17 04:31 levofloxacin Allergy Severe numbness Verified 01/23/17 04:31 propylene glycol Allergy Severe SWELLING Verified 01/23/17 04:31 sodium polystyrene sulfonate Allergy Severe SWELLING Verified 01/23/17 04:31 [From Kayexalate] ergocalciferol (vitamin D2) Allergy SWELLING Verified 01/23/17 04:31 [From Vitamin D2] tramadol AdvReac NAUSEA Verified 01/24/17 00:01 seafood Allergy Severe throat Uncoded 01/23/17 04:31 swelling Review of Systems ROS Statement: Except As Marked, All Systems Reviewed And Found Negative Constitutional: Positive for: Other (swelling of entire body). Negative for: Fever Cardiovascular: Negative for: Chest Pain Respiratory: Positive for: Shortness of Breath. Negative for: Cough Physical Exam - Reviewed Nursing Documentation Reviewed: Yes Vital Signs Reviewed: Yes - Physical Exam Appears: Positive for: Non-toxic, No Acute Distress Head Exam: Positive for: ATRAUMATIC, NORMOCEPHALIC Eye Exam: Positive for: Normal appearance, EOMI Cardiovascular/Chest: Positive for: Regular Rate, Rhythm. Negative for: Murmur Respiratory: Positive for: Decreased Breath Sounds (at bases ). Negative for: Respiratory Distress Gastrointestinal/Abdominal: Positive for: Distended. Negative for: Tenderness Extremity: Positive for: Pedal Edema (2+ pitting edema with multiple excoriations over entire body ) Neurologic/Psych: Positive for: Alert, Oriented (x3). Negative for: Motor/ Sensory Deficits - Laboratory Results Result Diagrams: 02/22/17 07:45 - ECG O2 Sat by Pulse Oximetry: 97 (RA) Pulse Ox Interpretation: Normal Medical Decision Making Medical Decision Making: Time: 07:01 Impression: Shortness of Breath Plan: * ED EKG * ProBNP * CMP * CBC (with differential) * Chest Two Views (PA/LAT) [RAD] * Reevaluation Scribe Attestation: Documented by Leatha Pacheco, acting as a scribe for Mark Guzmán MD. Provider Scribe Attestation: All medical record entries made by the Scribe were at my direction and personally dictated by me. I have reviewed the chart and agree that the record accurately reflects my personal performance of the history, physical exam, medical decision making, and the department course for this patient. I have also personally directed, reviewed, and agree with the discharge instructions and disposition. Disposition - Clinical Impression Clinical Impression: ESRD on hemodialysis, Renal failure - Patient ED Disposition Is Patient to be Admitted: Yes - Disposition Disposition Time: 08:21 Condition: FAIR Forms: Company (Ecuadorean) - Pt Status Changed To: Hospital Disposition Of: Inpatient - Admit Certification Admit to Inpatient:: After my assessment, the patient will require hospitalization for at least two midnights. This is because of the severity of symptoms shown, intensity of services needed, and/or the medical risk in this patient being treated as an outpatient. - POA Present On Arrival: None
[2017-02-22 08:05] LABS: ALB/GLOB RATIO 1.2 (1.0-2.1); BILIRUBIN,TOTAL 1.3 mg/dl (0.2-1.3); CALCIUM 6.8 mg/dL (8.4-10.2)
[2017-02-22 08:16] LABS: POTASSIUM 6.5 MMOL/L (3.6-5.0)
[2017-02-22] MEDS ORDERED: Insulin Regular 100 units/ml IV STA (08:18)
[2017-02-22] MEDS ORDERED: Sodium Bicarbonate 7.5% (0.9 MEQ/ML) 50ML INJ IV ONE (08:19)
[2017-02-22] MEDS ORDERED: Dextrose 50% SYRINGE Inj (50 ml) IVP ONE (08:19)
[2017-02-22 08:20] LABS: BASO # 0.1 K/uL (0.0-0.2); BASO % 0.8 % (0.0-2.0); EOS # 0.2 K/uL (0.0-0.7); EOS % 2.9 % (0.0-4.0); HEMATOCRIT 33.7 % (34.0-47.0); LYMPH # 1.1 K/uL (1.0-4.3); LYMPH % 13.7 % (20.0-40.0); MEAN CELL VOLUME 94.5 fl (81.0-99.0); MEAN CORPUSCULAR HEMOGLOBIN 29.4 pg (27.0-31.0); MEAN CORPUSCULAR HGB CONC 31.2 g/dL (33.0-37.0); MEAN PLATELET VOLUME 9.2 fl (7.2-11.7); MONO # 0.9 K/uL (0.0-0.8); MONO % 10.4 % (0.0-10.0); NEUT % 72.2 % (50.0-75.0); NRBC % 0.1 % (0.0-0.0); WHITE BLOOD COUNT 8.3 K/uL (4.8-10.8)
[2017-02-22] MEDS ORDERED: Albuterol 0.083% Inhal Sol (2.5 mg/3 mL) UD INH STA (08:20)
[2017-02-22 09:31] LABS: CALCIUM 6.9 mg/dL (8.4-10.2)
[2017-02-22 09:33] LABS: POTASSIUM 6.1 MMOL/L (3.6-5.0)
--- NOTE | 2017-02-22 10:39 | RAD ---
HISTORY: COMPARISON: 02/12/2017. TECHNIQUE: Chest PA and lateral FINDINGS: LINES AND TUBES: None. LUNG AND PLEURA: There are low lung volumes which may be related to poor inspiratory effort. There is subsegmental atelectasis in the left lower lobe. There is no focal consolidation. HEART AND MEDIASTINUM: The heart is not enlarged. The hilar and mediastinal contours are within normal limits. SKELETAL STRUCTURES: The bony structures are within normal limits for the patient's age. VISUALIZED UPPER ABDOMEN: Normal. OTHER FINDINGS: None. IMPRESSION: Subsegmental atelectasis in the left lower lobe. No acute findings.
--- NOTE | 2017-02-22 10:53 | CP.PCM.HP ---
History of Present Illness - History of Present Illness History of Present Illness: Patient seen and examined with attending. 66 year old female with ESRD on HD MWF and DM presented with complaints of bilateral leg cramping and pain. She has swelling of her lower extremties and states she has not felt well since November. She is unable to sleep due to her leg cramping and pain. She is pacing around the room during the interview, appears tired. Daughter and patient both state she fell today and she has fallen 2-3 times this year. Denies dizziness presently. Unable to answer about changes in vision. The daughter repeatedly states she was given some 'potassium medication' at her dialysis center x 3 and she has not been well since. She was supposed to have HD today. She was seen by Dr. Campos. Present on Admission - Present on Admission Any Indicators Present on Admission: No Review of Systems - Constitutional Constitutional: Daytime Sleepiness, Frequent Falls, Weight Gain. absent: Anorexia, Weight Loss - Cardiovascular Cardiovascular: absent: Chest Pain, Diaphoresis - Respiratory Respiratory: absent: Cough, Dyspnea - Gastrointestinal Gastrointestinal: Abdominal Pain (ruq due to 'mass'). absent: Diarrhea, Dyspepsia, Excessive Flatus, Nausea, Vomiting - Musculoskeletal Musculoskeletal: absent: Abnormal Gait, Numbness, Tingling - Neurological Neurological: Dizziness. absent: Abnormal Movements, Numbness, Focal Weakness, Headaches, Syncope - Psychiatric Additional comments: unable to sleep due to cramping Past Patient History - Infectious Disease Hx of Infectious Diseases: None - Past Medical History & Family History Past Medical History?: Yes - Past Social History Alcohol: None Drugs: Denies - CARDIAC Hx Cardiac Disorders: Yes - PULMONARY Hx Pneumonia: Yes Hx Sleep Apnea: Yes - NEUROLOGICAL Hx Transient Ischemic Attacks (TIA): Yes - HEENT Hx HEENT Problems: No - RENAL Hx Chronic Kidney Disease: Yes (Chronic kidney disease, HD) - ENDOCRINE/METABOLIC Hx Endocrine Disorders: Yes - HEMATOLOGICAL/ONCOLOGICAL Hx Anemia: Yes Hx Human Immunodeficiency Virus (HIV): No - INTEGUMENTARY Hx Dermatological Problems: No - MUSCULOSKELETAL/RHEUMATOLOGICAL Hx Musculoskeletal Disorders: Yes (Back pain) - GASTROINTESTINAL Hx Gall Bladder Disease: Yes - GENITOURINARY/GYNECOLOGICAL Hx Genitourinary Disorders: No Other/Comment: RIGHT SIDED MASS IN UTERUS - PSYCHIATRIC Hx Anxiety: Yes Hx Depression: Yes - SURGICAL HISTORY Hx Cholecystectomy: Yes Hx Tonsillectomy: Yes - ANESTHESIA Hx Anesthesia: Yes Hx Anesthesia Reactions: No Hx Malignant Hyperthermia: No Meds Allergies/Adverse Reactions: Allergies Allergy/AdvReac Type Severity Reaction Status Date / Time calcium acetate [From PhosLo] Allergy Severe hives Verified 01/23/17 04:31 glycerin Allergy Severe RASH Verified 01/23/17 04:31 Influenza Virus Vaccines Allergy Severe ANAPHYLAXIS Verified 01/23/17 04:31 levofloxacin Allergy Severe numbness Verified 01/23/17 04:31 propylene glycol Allergy Severe SWELLING Verified 01/23/17 04:31 sodium polystyrene sulfonate Allergy Severe SWELLING Verified 01/23/17 04:31 [From Kayexalate] ergocalciferol (vitamin D2) Allergy SWELLING Verified 01/23/17 04:31 [From Vitamin D2] tramadol AdvReac NAUSEA Verified 01/24/17 00:01 seafood Allergy Severe throat Uncoded 01/23/17 04:31 swelling Physical Exam - Constitutional Appears: Confused - Head Exam Head Exam: ATRAUMATIC, NORMAL INSPECTION, NORMOCEPHALIC - Eye Exam Eye Exam: Normal appearance - ENT Exam ENT Exam: Mucous Membranes Moist - Respiratory Exam Respiratory Exam: Clear to Auscultation Bilateral, NORMAL BREATHING PATTERN. absent: Rales, Rhonchi, Wheezes - Cardiovascular Exam Cardiovascular Exam: REGULAR RHYTHM, +S1, +S2 - GI/Abdominal Exam GI & Abdominal Exam: Hypoactive Bowel Sounds, Soft. absent: Distended, Guarding , Rebound - Rectal Exam Rectal Exam: Deferred - Extremities Exam Extremities exam: Positive for: pedal edema (bilateral +2 pitting), tenderness ( anteriorly) - Neurological Exam Neurological exam: CN II-XII Intact - Psychiatric Exam Psychiatric exam: Depressed - Skin Skin Exam: Dry, Intact, Normal Color Results - Vital Signs Recent Vital Signs: Last Vital Signs Temp 97.5 F L 02/22/17 10:00 Pulse 70 02/22/17 10:00 Resp 22 02/22/17 10:00 BP 174/87 H 02/22/17 10:00 Pulse Ox 99 02/22/17 09:23 - Labs Result Diagrams: 02/22/17 07:45 02/22/17 08:52 Labs: Laboratory Results - last 24 hr 02/22/17 08:52 Sodium 139 Potassium 6.1 H Chloride 99 Carbon Dioxide 19 L Anion Gap 27 H BUN 109 H* Creatinine 7.2 H Est GFR ( Amer) 7 Est GFR (Non-Af Amer) 6 Random Glucose 243 H Calcium 6.9 L Assessment & Plan - Assessment and Plan (Free Text) Assessment: 66 year old female with ESRD on HD MWF and DM, found to be hyperkalemic. Patient is for dialysis today. Patient known to service from multiple admissions. Appears to be noncompliant with medications. Patient seen and evaluated by Dr. Campos #CKD stage 5, ESRD on HD #Hyperkalemia #Anemia #NIDDM #DVT prophylaxis -patient treated for hyperkalemia in ed with insulin/albuterol/sodium bicarb -scheduled for HD today -anemia likely 2' to chronic disease -Insulin sliding scale for glucose control -heparin for dvt prophylaxis
--- NOTE | 2017-02-22 11:46 | CP.PCM.CON ---
History of Present Illness - History of Present Illness History of Present Illness: This patient who is 66 years of age came to the emergency room complaining of shortness of breath and increasing leg swollen and edema patient did not show up for dialysis as outpatient. Patient is known with end stage renal disease on maintenance hemodialysis 3 times a week she has not been compliance she did not completely dialysis most of the time and she goes to [facility] dialysis unit as outpatient. Patient extremely difficult and noncooperative and blaming just about everybody around at the dialysis unit. Patient also was here recently and she reported that she has abdominal mass and she signout at the time she was going to go for surgery with her surgeon which she did not declare his name. Have daughter at the bedside and even more difficult than the mother. Patient has multitude of admission and refusing to completed dialysis and she put conditioned right away she will not go more than 3 hours yet patient is edematous all over. Review of Systems - Constitutional Constitutional: As Per HPI - EENT Nose/Mouth/Throat: As Per HPI - Cardiovascular Cardiovascular: Dyspnea, Edema, Leg Edema - Respiratory Respiratory: Dyspnea, Chest Congestion. absent: Hemoptysis - Gastrointestinal Gastrointestinal: Bloating. absent: Coffee Ground Emesis - Genitourinary Genitourinary: As Per HPI - Menstruation Menstruation: As Per HPI - Musculoskeletal Musculoskeletal: Muscle Weakness Past Patient History - Infectious Disease Hx of Infectious Diseases: None - Past Medical History & Family History Past Medical History?: Yes - Past Social History Alcohol: None Drugs: Denies - CARDIAC Hx Cardiac Disorders: Yes - PULMONARY Hx Pneumonia: Yes Hx Sleep Apnea: Yes - NEUROLOGICAL Hx Transient Ischemic Attacks (TIA): Yes - HEENT Hx HEENT Problems: No - RENAL Hx Chronic Kidney Disease: Yes (Chronic kidney disease, HD) - ENDOCRINE/METABOLIC Hx Endocrine Disorders: Yes - HEMATOLOGICAL/ONCOLOGICAL Hx Anemia: Yes Hx Human Immunodeficiency Virus (HIV): No - INTEGUMENTARY Hx Dermatological Problems: No - MUSCULOSKELETAL/RHEUMATOLOGICAL Hx Musculoskeletal Disorders: Yes (Back pain) - GASTROINTESTINAL Hx Gall Bladder Disease: Yes - GENITOURINARY/GYNECOLOGICAL Hx Genitourinary Disorders: No Other/Comment: RIGHT SIDED MASS IN UTERUS - PSYCHIATRIC Hx Anxiety: Yes Hx Depression: Yes - SURGICAL HISTORY Hx Cholecystectomy: Yes Hx Tonsillectomy: Yes - ANESTHESIA Hx Anesthesia: Yes Hx Anesthesia Reactions: No Hx Malignant Hyperthermia: No Meds Allergies/Adverse Reactions: Allergies Allergy/AdvReac Type Severity Reaction Status Date / Time calcium acetate [From PhosLo] Allergy Severe hives Verified 01/23/17 04:31 glycerin Allergy Severe RASH Verified 01/23/17 04:31 Influenza Virus Vaccines Allergy Severe ANAPHYLAXIS Verified 01/23/17 04:31 levofloxacin Allergy Severe numbness Verified 01/23/17 04:31 propylene glycol Allergy Severe SWELLING Verified 01/23/17 04:31 sodium polystyrene sulfonate Allergy Severe SWELLING Verified 01/23/17 04:31 [From Kayexalate] ergocalciferol (vitamin D2) Allergy SWELLING Verified 01/23/17 04:31 [From Vitamin D2] tramadol AdvReac NAUSEA Verified 01/24/17 00:01 seafood Allergy Severe throat Uncoded 01/23/17 04:31 swelling - Medications Medications: Current Medications Acetaminophen (Tylenol 325mg Tab) 650 mg PO Q6 PRN PRN Reason: Pain, Mild (1-3) Heparin Sodium (Porcine) (Heparin) 5,000 units SC Q8 RAYMOND PRN Reason: Protocol Physical Exam - Constitutional Appears: No Acute Distress - ENT Exam ENT Exam: Mucous Membranes Moist - Respiratory Exam Respiratory Exam: Rhonchi. absent: Chest Wall Tenderness - Cardiovascular Exam Cardiovascular Exam: absent: JVD, Rubs - GI/Abdominal Exam GI & Abdominal Exam: Distended, Normal Bowel Sounds - Extremities Exam Extremities exam: Positive for: pedal edema. Negative for: calf tenderness - Back Exam Back exam: absent: CVA tenderness (L), CVA tenderness (R) - Psychiatric Exam Psychiatric exam: Anxious Results - Vital Signs Recent Vital Signs: Last Vital Signs Temp 97.5 F L 02/22/17 10:00 Pulse 70 02/22/17 10:00 Resp 22 02/22/17 10:00 BP 174/87 H 02/22/17 10:00 Pulse Ox 99 02/22/17 09:23 - Labs Result Diagrams: 02/22/17 07:45 02/22/17 08:52 Labs: Laboratory Results - last 24 hr 02/22/17 08:52 Sodium 139 Potassium 6.1 H Chloride 99 Carbon Dioxide 19 L Anion Gap 27 H BUN 109 H* Creatinine 7.2 H Est GFR ( Amer) 7 Est GFR (Non-Af Amer) 6 Random Glucose 243 H Calcium 6.9 L Assessment & Plan (1) Hyperkalemia Status: Acute (2) ESRD on hemodialysis Assessment and Plan: Patient with end stage renal disease on maintenance dialysis admitted with increasing leg edema and swollen and water retention hyperkalemia she was given treatment in the emergency room for high potassium but not Kayexalate Urgent hemodialysis called and consent was taken I spoke to the patient and her daughter at the bedside and the main in denial on so many issues. She refused to go more gently 3 hours on dialysis and we will try if she will be agreeable to do it again tomorrow Status: Chronic
[2017-02-22] MEDS ORDERED: Amiodarone 150mg/3 ml vial ONE (13:00)
[2017-02-22] MEDS ORDERED: Calcium Gluconate 4.65 mEq/10 ml Inj ONE (13:00)
--- NOTE | 2017-02-22 18:21 | CARD ---
APPROVED REPORT EKG Measurement Heart [id number] ID [id number] <Conclusion> Normal sinus rhythm Left axis deviation Left bundle branch block Abnormal ECG
--- NOTE | 2017-02-23 10:24 | CP.PCM.PN ---
Subjective - Date & Time of Evaluation Date of Evaluation: 02/23/17 Time of Evaluation: 10:23 - Subjective Subjective: patient remains stable Has no fever Has no chest pain or SOB. Objective - Vital Signs/Intake and Output Vital Signs (last 24 hours): Temp Pulse Resp BP Pulse Ox 97.7 F 79 16 118/61 100 02/23/17 08:07 02/23/17 08:35 02/23/17 08:07 02/23/17 08:35 02/23/17 08:07 - Medications Medications: Current Medications Acetaminophen (Tylenol 325mg Tab) 650 mg PO Q6 PRN PRN Reason: Pain, Mild (1-3) Atenolol (Tenormin) 25 mg PO DAILY [facility] Last Admin: 02/23/17 08:35 Dose: 25 mg Diphenhydramine HCl (Benadryl) 25 mg PO Q8 PRN PRN Reason: Itching / Pruritus Last Admin: 02/23/17 08:31 Dose: 25 mg Glipizide (Glucotrol) 5 mg PO DAILYWM [facility] Heparin Sodium (Porcine) (Heparin) 5,000 units SC Q8 RAYMOND PRN Reason: Protocol Last Admin: 02/23/17 08:32 Dose: 5,000 units Sevelamer HCl (Renagel) 1,600 mg PO TID [facility] Last Admin: 02/23/17 08:31 Dose: 1,600 mg Sitagliptin Phosphate (Januvia) 25 mg PO DAILY [facility] Last Admin: 02/23/17 08:31 Dose: 25 mg - Labs Labs: 02/22/17 08:52
--- NOTE | 2017-02-23 13:20 | CP.PCM.PN ---
Subjective - Date & Time of Evaluation Date of Evaluation: 02/23/17 Time of Evaluation: 01:00 - Subjective Subjective: Sitting up in chair. No dyspnea noted Objective - Vital Signs/Intake and Output Vital Signs (last 24 hours): Temp Pulse Resp BP Pulse Ox 97.6 F 81 18 99/45 L 98 02/23/17 12:08 02/23/17 12:08 02/23/17 12:08 02/23/17 12:08 02/23/17 12:08 - Medications Medications: Current Medications Acetaminophen (Tylenol 325mg Tab) 650 mg PO Q6 PRN PRN Reason: Pain, Mild (1-3) Atenolol (Tenormin) 25 mg PO DAILY [facility] Last Admin: 02/23/17 08:35 Dose: 25 mg Diphenhydramine HCl (Benadryl) 25 mg PO Q8 PRN PRN Reason: Itching / Pruritus Last Admin: 02/23/17 08:31 Dose: 25 mg Glipizide (Glucotrol) 5 mg PO DAILYWM [facility] Last Admin: 02/23/17 08:05 Dose: 5 mg Heparin Sodium (Porcine) (Heparin) 5,000 units SC Q8 RAYMOND PRN Reason: Protocol Last Admin: 02/23/17 08:32 Dose: 5,000 units Sevelamer HCl (Renagel) 1,600 mg PO TID [facility] Last Admin: 02/23/17 08:31 Dose: 1,600 mg Sitagliptin Phosphate (Januvia) 25 mg PO DAILY [facility] Last Admin: 02/23/17 08:31 Dose: 25 mg - Labs Labs: 02/22/17 08:52 - Respiratory Exam Additional comments: Bibasilar fine crackles noted - Cardiovascular Exam Cardiovascular Exam: REGULAR RHYTHM - Extremities Exam Additional comments: Pitting edema of both LEs Assessment and Plan - Assessment and Plan (Free Text) Assessment: ESRD on HD HTN DM Plan: Pt had extra dialysis today Labd reviewed next dialysis on Saturday
[2017-02-23] MEDS: Insulin Regular 100 units/ml SC SCH ×2 (17:10→23:20)
[2017-02-24 03:31] LABS: CALCIUM 7.5 mg/dL (8.4-10.2); POTASSIUM 5.5 MMOL/L (3.6-5.0)
[2017-02-24] MEDS ORDERED: Albuterol 0.083% Inhal Sol (2.5 mg/3 mL) UD INH ONE (03:37)
[2017-02-24 05:06] LABS: BASO # 0.1 K/uL (0.0-0.2); BASO % 0.9 % (0.0-2.0); EOS # 0.1 K/uL (0.0-0.7); EOS % 1.1 % (0.0-4.0); HEMATOCRIT 19.7 % (34.0-47.0); LYMPH # 1.3 K/uL (1.0-4.3); MEAN CELL VOLUME 95.3 fl (81.0-99.0); MEAN CORPUSCULAR HEMOGLOBIN 30.4 pg (27.0-31.0); MEAN CORPUSCULAR HGB CONC 31.9 g/dL (33.0-37.0); MEAN PLATELET VOLUME 9.3 fl (7.2-11.7); MONO # 0.7 K/uL (0.0-0.8); MONO % 9.4 % (0.0-10.0); NEUT # 5.5 K/uL (1.8-7.0); NEUT % 71.6 % (50.0-75.0); NRBC % 0.1 % (0.0-0.0); RED CELL DISTRIBUTION WIDTH 20.4 % (11.5-14.5); WHITE BLOOD COUNT 7.6 K/uL (4.8-10.8)
[2017-02-24 08:11] VITALS: TEMP 98.5
[2017-02-24] MEDS: Insulin Regular 100 units/ml SC SCH (08:17)
[2017-02-24] MEDS ORDERED: Dextrose 50% SYRINGE Inj (50 ml) ONE ×2 (09:53→11:00)
[2017-02-24] MEDS ORDERED: Dextrose 50% SYRINGE Inj (50 ml) IVP ONE (09:56)
--- NOTE | 2017-02-24 10:34 | CT ---
PROCEDURE: CT Abdomen and Pelvis with contrast HISTORY: abd pain, acute drop in hg COMPARISON: 02/12/2017. TECHNIQUE: Contrast dose: Radiation dose: Total exam DLP = mGy-cm. This CT exam was performed using one or more of the following dose reduction techniques: Automated exposure control, adjustment of the mA and/or kV according to patient size, and/or use of iterative reconstruction technique. FINDINGS: LOWER THORAX: Unremarkable. LIVER: Unremarkable. No gross lesion or ductal dilatation. GALLBLADDER AND BILE DUCTS: Status post cholecystectomy. No abnormality is seen in the gallbladder fossa. PANCREAS: Unremarkable. No gross lesion or ductal dilatation. SPLEEN: Unremarkable. ADRENALS: Unremarkable right adrenal gland. Stable enlargement left adrenal gland. KIDNEYS AND URETERS: Unremarkable. No hydronephrosis. No solid mass. VASCULATURE: Unremarkable. No aortic aneurysm. BOWEL: Unremarkable. No obstruction. No gross mural thickening. Constipation without fecal impaction or obstruction. APPENDIX: No abnormalities to suggest acute appendicitis. No right lower quadrant inflammatory processes identified. PERITONEUM: Unremarkable. No free fluid. No free air. LYMPH NODES: Unremarkable. No enlarged lymph nodes. BLADDER: Unremarkable. REPRODUCTIVE: Incompletely visualize cystic mass identified on the prior study unchanged as can best be determined. Partially calcified uterus/uterine fibroids. BONES: No acute fracture. OTHER FINDINGS: Worsening anasarca allNone. IMPRESSION: Worsening subcutaneous edema/ anasarca. Otherwise no significant interval changes compared to the prior study 02/12/2017.
--- NOTE | 2017-02-24 10:46 | PN ---
DATE: 02/24/2017 SUBJECTIVE: Patient is seen and examined. Interim events noted. Consult's noted and appreciated. Intervention noted and appreciated. Patient remains in progressive care unit, on telemetry monitoring. Require one to one observation for safety. Patient is very uncooperative, taking off her clothes. Patient receives medical management. Denies any specific complaint of chest pain or shortness of breath. cooperative. PHYSICAL EXAMINATION GENERAL: Patient is in no acute distress. VITAL SIGNS: Stable. HEART: S1 and S2 normal. LUNGS: Good bilateral air entry. ABDOMEN: Soft, nontender. EXTREMITIES: No edema. No calf swelling. No tenderness. No acute ischemia. CENTRAL NERVOUS SYSTEM: Essentially unchanged. There is no sign of acute . Patient does show some signs of psychosis probably from hospital. DIAGNOSTIC DATA: Available diagnostic data reviewed. Telemetry monitoring does not show significant arrhythmia. Hemoglobin is down to 6.8. ASSESSMENT: Overall, patient's general medical condition is hemodynamically stable although remains sick. PLAN: As ordered. Case and plan discussed with the patient. Vance Colin MD
--- NOTE | 2017-02-24 10:57 | PCM.RRT ---
CAN SLIDER Nurse Assessment - Situation CAN SLIDER Responder Arrival Time: 09:50 Room Number: [id number] CAN SLIDER Reason for Call: Bradycardia, Hypotension, O2 Saturation below 90%, Change in Mental Status (Hypoglycemia.) CAN SLIDER Called By: RN - IV IV Inserted during CAN SLIDER?: Yes New IV Insertion Tolerance:: Good - Respiratory Oxygen Delivery Method: Nasal Cannula Received Nebulizer Treatments: No Was the Patient Ventilated with Bag/Mask 100% O2?: No Secretions Suctioned?: No Was the Patient Intubated?: No Was the Patient Placed on a Ventilator?: No - Ventilator Settings Peak Flow: 1 - Medication Medications Administered During CAN SLIDER: Atropine 1 mg IVP. Dextrose 50% 50 mL IVP. I.Reason for CAN SLIDER - A) Acute Change in Patient: (Select all that apply): Acute change in mental status, Acute change in heart rate less than 50 or greater than 120 (HR was 41 BPM.), Acute change in SBP below (92/37 mmHg) - Neurological Status (Select all that apply): Disoriented, Weakness - Respiratory Oxygen Delivery Method: Nasal Cannula @L/min - Constitutional Appears: Confused. absent: Well Additional Comments: Pt with altered mental status. Plan - Assessment of Findings&Treatment Plan CAN SLIDER was called for AMS , hypotension and bradycardia on a 66 y/o F with a PMHx of ESRD and DM 2. - Pt was found confused, unresponsive, bradycardic (HR 41), hypotensive (92/37) , 3rd degree AV block on monitor and with rapid blood sugar accucheck 25 mg/dL. CAN SLIDER interventions: Nasal canula O2 delivery, central line was inserted in right femoral vein under clean sterile conditions, Atropine 1mg IVP and Dextrose 50% 50 mL were administered. Pt was transferred to ICU for futher management, with VS: HR 71bpm, BP 89/49, O2 sat% of 94 and RR 19.
[2017-02-24] MEDS ORDERED: DOPamine 400mg/250ml D5W 400 MG/250 ML BAG IV ONE ×2 (11:00→12:00)
[2017-02-24] MEDS ORDERED: Sodium Chloride 0.9% 500 ML IV ONE ×2 (11:05→12:05)
[2017-02-24 11:07] LABS: BASO % 0.5 % (0.0-2.0); EOS % 0.1 % (0.0-4.0); HEMATOCRIT 19.6 % (34.0-47.0); LYMPH # 0.5 K/uL (1.0-4.3); LYMPH % 6.7 % (20.0-40.0); MEAN CELL VOLUME 99.8 fl (81.0-99.0); MEAN CORPUSCULAR HGB CONC 30.1 g/dL (33.0-37.0); MEAN PLATELET VOLUME 9.1 fl (7.2-11.7); MONO # 0.6 K/uL (0.0-0.8); MONO % 7.9 % (0.0-10.0); NEUT % 84.8 % (50.0-75.0); NRBC % 0.2 % (0.0-0.0); PLATELET COUNT 183 K/uL (130-400); WHITE BLOOD COUNT 8.2 K/uL (4.8-10.8)
[2017-02-24 11:39] LABS: ALB/GLOB RATIO 1.1 (1.0-2.1); BILIRUBIN,TOTAL 1.3 mg/dl (0.2-1.3); CALCIUM 7.6 mg/dL (8.4-10.2); TOTAL PROTEIN 5.3 G/DL (6.3-8.2)
[2017-02-24] MEDS ORDERED: Etomidate 20 mg/10ml Inj IV ONE (11:45)
[2017-02-24] MEDS ORDERED: Propofol 10 mg/ml 1,000 MG/100 ML VIAL ONE (11:45)
[2017-02-24 11:51] LABS: POTASSIUM 5.7 MMOL/L (3.6-5.0)
--- NOTE | 2017-02-24 11:59 | PCM.ANES ---
Anesthesia Emergent Intubation - Diagnosis Working Diagnosis:: cardiopulmonary arrest - Consult Reason for Consult:: intubation - Intubation Attempts Previous Number of Intubation Attempts:: 0 - Pre-Intubation Vital Signs Blood Pressure: 88/37 Heart Rate: 152 Respiratory Rate: 3 (agonal) Oxygen Delivery Method: Ambu-Bag Level Of Consciousness: Comatose/Unresponsive - Airway Management Oropharyngeal Area Suctioned: Yes Inhalation: Yes Rapid Sequence: No Cricoid Pressure: No Possible Aspiration: Yes - Method of Intubation Intubation Method: Oral ETT ETT Size: 8 mm Lipline@: 19 cm Easy: Yes Atramatic: Yes - Intubation Devices Francisco Blade Size Used: 3 Beto Forcepts Used: No [place] Scope Used: No Fiber Optic Scope: No - Placement Confirmation Breath Sounds Present & Equal Bilaterally: Yes Gurgling Sounds Not Audible at Epigastrum: Yes Positive EtCO2: Yes Recommendations: Ventilator - Post-Intubation Vital Signs Blood Pressure: 137/47 Heart Rate: 126 Respiratory Rate: 20
[2017-02-24 12:00] VITALS: BP 88/37; PULSE 152
[2017-02-24 12:02] VITALS: RESP 3; O2SAT 100
[2017-02-24 12:36] LABS: BASOPHIL 1 % (0-2); NEUTROPHIL 82 % (42-75); TOTAL CELLS COUNTED 100
[2017-02-24 12:37] LABS: LARGE PLATELETS PRESENT
--- NOTE | 2017-02-24 12:52 | CP.PCM.CON ---
History of Present Illness - History of Present Illness History of Present Illness: I was called to help in managing the patient in 4N after a FOOD PACKER was called on the patient for low HR, she had hypoglycemic with BS 23 and HR was in low 40s , SBP ws in 90s and she was saturating > 90%. She was confused. There was on IV access and peripheral line could not be established. I inserted a femoral TLV in emergency basis and pt was given d50% ampule and BS improved and also HR improved also, she was given 0.5 mg of IV atropine. She was started on dopamine infusion. A quick check on her recent blood work showed no significant electrolytes abnormality but her sudden and significant drop on her HB from 10.2 to 5.9 this morning. She did not have any diarrhea or vomiting. She had CT abdomen done this morning and it was unremarkable . She was admitted 2 days ago with worsening edema and SOB. She had ESRD and was dialyzed on day of admission and yesterday, two days in a row to correct her volume status and electrolytes. After d50 injection her BS increased to 230 but patient remained lethargic and hardly verbal. She was transferred to ICU and 2 unites of PRBs stat ordered and was started on IVF. She was in SRwith LBBB, her BP dropped and dopamine rate increased . Shortly after she was brought to ICU, patient went into cardiac arrest and a long and aggressive code was run. When anesthesia intubating the patient had a very large volume vomiting of coffee ground material , obviously suggesting a large volume upper GIB. Pt did not survive the code and at 12.09 PM. Pt's daughter was at the bedside. Dietetics Teacher Dr. Mast , who was present in 4N was called for consult while pt was being moved to ICU and he saw the patient , but patient went in cardiac arrest when he started evaluating the patient and was present in the room while CPR being conducted. Past Patient History - Infectious Disease Hx of Infectious Diseases: None - Past Medical History & Family History Past Medical History?: Yes - Past Social History Smoking Status: Never Smoked - CARDIAC Hx Cardiac Disorders: Yes Hx Congestive Heart Failure: Yes - PULMONARY Hx Respiratory Disorders: Yes Hx Pneumonia: Yes - NEUROLOGICAL Hx Neurological Disorder: No - HEENT Hx HEENT Problems: No - RENAL Hx Chronic Kidney Disease: Yes (Chronic kidney disease, HD) Hx Dialysis: Yes Type of Dialysis Access: L upper arm AV shunt Date of Last Dialysis Treatment: 02/22/17 Hx Kidney Stones: No Hx Neurogenic Bladder: No Hx Pyelonephritis: No Hx Renal (Kidney) Cancer: No Hx Renal Failure: Yes - ENDOCRINE/METABOLIC Hx Endocrine Disorders: Yes Hx Diabetes Mellitus Type 2: Yes - HEMATOLOGICAL/ONCOLOGICAL Hx Blood Disorders: Yes Hx AIDS: No Hx Anemia: Yes Hx Human Immunodeficiency Virus (HIV): No - INTEGUMENTARY Hx Dermatological Problems: No - MUSCULOSKELETAL/RHEUMATOLOGICAL Hx Musculoskeletal Disorders: Yes (Back pain) Hx Back Pain: Yes Hx Falls: Yes - GASTROINTESTINAL Hx Gastrointestinal Disorders: Yes Hx Gall Bladder Disease: Yes - GENITOURINARY/GYNECOLOGICAL Hx Genitourinary Disorders: Yes Other/Comment: RIGHT SIDED MASS IN UTERUS - PSYCHIATRIC Hx Psychophysiologic Disorder: No Hx Substance Use: No - SURGICAL HISTORY Hx Surgeries: Yes Hx Cholecystectomy: Yes Hx Tonsillectomy: Yes - ANESTHESIA Hx Anesthesia: Yes Hx Anesthesia Reactions: No Hx Malignant Hyperthermia: No Has any member of the family had a problem w/ anesthesia?: No Meds Allergies/Adverse Reactions: Allergies Allergy/AdvReac Type Severity Reaction Status Date / Time calcium acetate [From PhosLo] Allergy Severe hives Verified 01/23/17 04:31 glycerin Allergy Severe RASH Verified 01/23/17 04:31 Influenza Virus Vaccines Allergy Severe ANAPHYLAXIS Verified 01/23/17 04:31 levofloxacin Allergy Severe numbness Verified 01/23/17 04:31 propylene glycol Allergy Severe SWELLING Verified 01/23/17 04:31 sodium polystyrene sulfonate Allergy Severe SWELLING Verified 01/23/17 04:31 [From Kayexalate] ergocalciferol (vitamin D2) Allergy SWELLING Verified 01/23/17 04:31 [From Vitamin D2] tramadol AdvReac NAUSEA Verified 01/24/17 00:01 seafood Allergy Severe throat Uncoded 01/23/17 04:31 swelling - Medications Medications: Current Medications Acetaminophen (Tylenol 325mg Tab) 650 mg PO Q6 PRN PRN Reason: Pain, Mild (1-3) Atenolol (Tenormin) 25 mg PO DAILY [facility] Last Admin: 02/24/17 08:18 Dose: Not Given Diphenhydramine HCl (Benadryl) 25 mg PO Q8 PRN PRN Reason: Itching / Pruritus Last Admin: 02/24/17 01:05 Dose: 25 mg Glipizide (Glucotrol) 5 mg PO DAILYWM [facility] Last Admin: 02/24/17 08:11 Dose: Not Given Heparin Sodium (Porcine) (Heparin) 5,000 units SC Q8 [facility] PRN Reason: Protocol Last Admin: 02/24/17 08:11 Dose: Not Given Insulin Human Regular (Humulin R) 0 units SC ACCU-CHECK [facility] PRN Reason: Protocol Last Admin: 02/24/17 08:17 Dose: Not Given Sevelamer HCl (Renagel) 1,600 mg PO TID [facility] Last Admin: 02/24/17 08:17 Dose: Not Given Sitagliptin Phosphate (Januvia) 25 mg PO DAILY [facility] Last Admin: 02/24/17 08:17 Dose: Not Given Physical Exam - Head Exam Head Exam: ATRAUMATIC - Eye Exam Eye Exam: EOMI - Respiratory Exam Respiratory Exam: Rales - Cardiovascular Exam Cardiovascular Exam: Bradycardia - GI/Abdominal Exam GI & Abdominal Exam: Normal Bowel Sounds - Extremities Exam Extremities exam: Positive for: pedal edema Results - Vital Signs Recent Vital Signs: Last Vital Signs Temp 98.5 F 02/24/17 08:00 Pulse 152 H 02/24/17 12:08 Resp 3 L 02/24/17 12:08 BP 88/37 L 02/24/17 12:08 Pulse Ox 100 02/24/17 12:01 - Labs Result Diagrams: 02/24/17 10:55 02/24/17 10:55 Labs: Laboratory Results - last 24 hr 02/23/17 02/23/17 02/24/17 15:58 21:02 03:18 WBC RBC Hgb Hct MCV MCH MCHC RDW Plt Count MPV Neut % (Auto) Lymph % (Auto) [place] % (Auto) Eos % (Auto) Baso % (Auto) Neut # Lymph # [place] # Eos # Baso # Retic Count PT INR APTT Sodium 139 Potassium 5.5 H Chloride 99 Carbon Dioxide 19 L Anion Gap 27 H BUN 83 H Creatinine 4.8 H Est GFR ( Amer) 11 Est GFR (Non-Af Amer) 9 POC Glucose (mg/dL) 304 H 188 H Random Glucose 117 H Calcium 7.5 L Magnesium Total Bilirubin AST ALT Alkaline Phosphatase Total Protein Albumin Globulin Albumin/Globulin Ratio Blood Type Antibody Screen Crossmatch BBK History Checked 0902/24/17 02/24/17 05:00 05:30 06:30 WBC 7.6 RBC 2.06 L Hgb 6.3 L* D Hct 19.7 L MCV 95.3 MCH 30.4 MCHC 31.9 L RDW 20.4 H Plt Count 188 MPV 9.3 Neut % (Auto) 71.6 Lymph % (Auto) 17.0 L [place] % (Auto) 9.4 Eos % (Auto) 1.1 Baso % (Auto) 0.9 Neut # 5.5 Lymph # 1.3 [place] # 0.7 Eos # 0.1 Baso # 0.1 Retic Count PT INR APTT Sodium Potassium Chloride Carbon Dioxide Anion Gap BUN Creatinine Est GFR ( Amer) Est GFR (Non-Af Amer) POC Glucose (mg/dL) 99 Random Glucose Calcium Magnesium Total Bilirubin AST ALT Alkaline Phosphatase Total Protein Albumin Globulin Albumin/Globulin Ratio Blood Type A POSITIVE Antibody Screen Negative Crossmatch See Detail BBK History Checked Patient has bt 02/24/17 02/24/17 02/24/17 08:15 09:51 10:32 WBC RBC Hgb Hct MCV MCH MCHC RDW Plt Count MPV Neut % (Auto) Lymph % (Auto) [place] % (Auto) Eos % (Auto) Baso % (Auto) Neut # Lymph # [place] # Eos # Baso # Retic Count PT INR APTT Sodium Potassium Chloride Carbon Dioxide Anion Gap BUN Creatinine Est GFR ( Amer) Est GFR (Non-Af Amer) POC Glucose (mg/dL) 25 L* 241 H Random Glucose Calcium Magnesium 2.2 Total Bilirubin AST ALT Alkaline Phosphatase Total Protein Albumin Globulin Albumin/Globulin Ratio Blood Type Antibody Screen Crossmatch BBK History Checked 02/24/17 02/24/17 02/24/17 10:55 10:55 10:55 WBC 8.2 RBC 1.96 L Hgb 5.9 L* Hct 19.6 L MCV 99.8 H D MCH 30.0 MCHC 30.1 L RDW 21.0 H Plt Count 183 MPV 9.1 Neut % (Auto) 84.8 H Lymph % (Auto) 6.7 L [place] % (Auto) 7.9 Eos % (Auto) 0.1 Baso % (Auto) 0.5 Neut # 7.0 Lymph # 0.5 L [place] # 0.6 Eos # 0.0 Baso # 0.0 Retic Count PT 16.5 H INR 1.6 H APTT 31.0 Sodium 140 Potassium 5.7 H Chloride 99 Carbon Dioxide 9 L* D Anion Gap 38 H BUN 81 H Creatinine 5.3 H Est GFR ( Amer) 10 Est GFR (Non-Af Amer) 8 POC Glucose (mg/dL) Random Glucose 128 H Calcium 7.6 L Magnesium Total Bilirubin 1.3 AST 92 H D ALT 51 Alkaline Phosphatase 133 H D Total Protein 5.3 L Albumin 2.8 L D Globulin 2.5 Albumin/Globulin Ratio 1.1 Blood Type Antibody Screen Crossmatch BBK History Checked 02/24/17 02/24/17 11:14 11:30 WBC RBC Hgb Hct MCV MCH MCHC RDW Plt Count MPV Neut % (Auto) Lymph % (Auto) [place] % (Auto) Eos % (Auto) Baso % (Auto) Neut # Lymph # [place] # Eos # Baso # Retic Count 3.6 H D PT INR APTT Sodium Potassium Chloride Carbon Dioxide Anion Gap BUN Creatinine Est GFR ( Amer) Est GFR (Non-Af Amer) POC Glucose (mg/dL) 145 H Random Glucose Calcium Magnesium Total Bilirubin AST ALT Alkaline Phosphatase Total Protein Albumin Globulin Albumin/Globulin Ratio Blood Type Antibody Screen Crossmatch BBK History Checked Assessment & Plan - Assessment and Plan (Free Text) Assessment: Cadiac arrest: PEA, asystole: Pt at 12-09 pm, Acute anemia GIB Edema ESRD on HD Plan: TLC was inserted on emergency basis in 4 N Transferred to ICU Blood transfusion Dopamine infusion CPR was runs for > 30 minutes Spoke to daughter, Cardiac consult was called Time spent 90 minutes.
--- NOTE | 2017-02-24 12:58 | CP.PCM.PN ---
Subjective - Date & Time of Evaluation Date of Evaluation: 02/24/17 Time of Evaluation: 11:30 - Subjective Subjective: Events noted Pt was seen in ICU Unresponsive BP was low Receiving saline bolus & on pressors Objective - Vital Signs/Intake and Output Vital Signs (last 24 hours): Temp Pulse Resp BP Pulse Ox 98.5 F 152 H 3 L 88/37 L 100 02/24/17 08:00 02/24/17 12:08 02/24/17 12:08 02/24/17 12:08 02/24/17 12:01 - Medications Medications: Current Medications Acetaminophen (Tylenol 325mg Tab) 650 mg PO Q6 PRN PRN Reason: Pain, Mild (1-3) Atenolol (Tenormin) 25 mg PO DAILY [facility] Last Admin: 02/24/17 08:18 Dose: Not Given Diphenhydramine HCl (Benadryl) 25 mg PO Q8 PRN PRN Reason: Itching / Pruritus Last Admin: 02/24/17 01:05 Dose: 25 mg Glipizide (Glucotrol) 5 mg PO DAILYWM [facility] Last Admin: 02/24/17 08:11 Dose: Not Given Heparin Sodium (Porcine) (Heparin) 5,000 units SC Q8 [facility] PRN Reason: Protocol Last Admin: 02/24/17 08:11 Dose: Not Given Insulin Human Regular (Humulin R) 0 units SC ACCU-CHECK [facility] PRN Reason: Protocol Last Admin: 02/24/17 08:17 Dose: Not Given Sevelamer HCl (Renagel) 1,600 mg PO TID [facility] Last Admin: 02/24/17 08:17 Dose: Not Given Sitagliptin Phosphate (Januvia) 25 mg PO DAILY [facility] Last Admin: 02/24/17 08:17 Dose: Not Given - Labs Labs: 02/24/17 10:55 02/24/17 10:55 PT 16.5 Seconds (9.8-13.1) H 02/24/17 10:55 INR 1.6 (0.9-1.2) H 02/24/17 10:55 APTT 31.0 Seconds (25.6-37.1) 02/24/17 10:55 - Respiratory Exam Additional comments: Lungs clear - Cardiovascular Exam Cardiovascular Exam: Bradycardia - GI/Abdominal Exam GI & Abdominal Exam: Soft - Extremities Exam Additional comments: No edema Assessment and Plan - Assessment and Plan (Free Text) Assessment: ESRD Cardiac arrest severe anemia Plan: Pt had cardiac arrest. Immediate rescutitative measures were initiated Pt was pronounced in ICU
--- NOTE | 2017-02-24 13:17 | CP.PCM.CON ---
History of Present Illness - History of Present Illness History of Present Illness: THE PATIENT IS A 66 YEAR OLD FEMALE WITH A HISTORY OF ESRD ON HD, HYPERTENSION, DIABETES MELLITUS, HYPERLIPIDEMIA WHO MISSED SOME RECENT HD SESSIONS AND WAS ADMITTED TO LEG SWELLING AND HYPERKALEMIA. ON 4N TODAY AN CROWNING INSPECTOR WAS CALLED DUE TO HYPOGLYCEMIA AND BRADYCARDIA AND THE PATIENT WAS GIVEN DEXTROSE AND STARTED ON DOPAMINE. SHE WAS FOUND TO BE ANEMIC AND BLOOD WAS ORDERED. SHE WAS TRANSFERRED TO THE ICU AND I WAS AROUND AND ASKED BY THE CERTIFIED TUMOR REGISTRAR TO SEE HER. AN EKG SHOWED SINUS RHYTHM WITH A LBBB. SOON I ENTERED THE ROOM SHE BECAME ASYSTOLIC WITH A FLAT LINE ON THE ROLL MECHANIC AND A CODE BLUE WAS CALLED LED BY THE CERTIFIED TUMOR REGISTRAR. CPR WAS STARTED AND SHE RECEIVED ATROPINE, EPINEPHRINE, CALCIUM GLUCONATE, AMIODARONE AND ALSO DEFIBRILLATED TWICE. SHE VOMITED BLOOD AND IT WAS SUCTIONED WITH AN APPARENT GI BLEED AND SHE WAS INTUBATED BY ANESTHESIA. SHE WAS CODED FOR 30 MINUTES WITHOUT SUCCESS AND THEN IT WAS CALLED AND THE PATIENT WAS PRONOUNCED. THE DAUGHTER WAS SPOKEN TO BY THE CODE TEAM. Past Patient History - Infectious Disease Hx of Infectious Diseases: None - Past Medical History & Family History Past Medical History?: Yes - Past Social History Smoking Status: Never Smoked - CARDIAC Hx Cardiac Disorders: Yes Hx Congestive Heart Failure: Yes - PULMONARY Hx Respiratory Disorders: Yes Hx Pneumonia: Yes - NEUROLOGICAL Hx Neurological Disorder: No - HEENT Hx HEENT Problems: No - RENAL Hx Chronic Kidney Disease: Yes (Chronic kidney disease, HD) Hx Dialysis: Yes Type of Dialysis Access: L upper arm AV shunt Date of Last Dialysis Treatment: 02/22/17 Hx Kidney Stones: No Hx Neurogenic Bladder: No Hx Pyelonephritis: No Hx Renal (Kidney) Cancer: No Hx Renal Failure: Yes - ENDOCRINE/METABOLIC Hx Endocrine Disorders: Yes Hx Diabetes Mellitus Type 2: Yes - HEMATOLOGICAL/ONCOLOGICAL Hx Blood Disorders: Yes Hx AIDS: No Hx Anemia: Yes Hx Human Immunodeficiency Virus (HIV): No - INTEGUMENTARY Hx Dermatological Problems: No - MUSCULOSKELETAL/RHEUMATOLOGICAL Hx Musculoskeletal Disorders: Yes (Back pain) Hx Back Pain: Yes Hx Falls: Yes - GASTROINTESTINAL Hx Gastrointestinal Disorders: Yes Hx Gall Bladder Disease: Yes - GENITOURINARY/GYNECOLOGICAL Hx Genitourinary Disorders: Yes Other/Comment: RIGHT SIDED MASS IN UTERUS - PSYCHIATRIC Hx Psychophysiologic Disorder: No Hx Substance Use: No - SURGICAL HISTORY Hx Surgeries: Yes Hx Cholecystectomy: Yes Hx Tonsillectomy: Yes - ANESTHESIA Hx Anesthesia: Yes Hx Anesthesia Reactions: No Hx Malignant Hyperthermia: No Has any member of the family had a problem w/ anesthesia?: No Meds Allergies/Adverse Reactions: Allergies Allergy/AdvReac Type Severity Reaction Status Date / Time calcium acetate [From PhosLo] Allergy Severe hives Verified 01/23/17 04:31 glycerin Allergy Severe RASH Verified 01/23/17 04:31 Influenza Virus Vaccines Allergy Severe ANAPHYLAXIS Verified 01/23/17 04:31 levofloxacin Allergy Severe numbness Verified 01/23/17 04:31 propylene glycol Allergy Severe SWELLING Verified 01/23/17 04:31 sodium polystyrene sulfonate Allergy Severe SWELLING Verified 01/23/17 04:31 [From Kayexalate] ergocalciferol (vitamin D2) Allergy SWELLING Verified 01/23/17 04:31 [From Vitamin D2] tramadol AdvReac NAUSEA Verified 01/24/17 00:01 seafood Allergy Severe throat Uncoded 01/23/17 04:31 swelling - Medications Medications: Current Medications Acetaminophen (Tylenol 325mg Tab) 650 mg PO Q6 PRN PRN Reason: Pain, Mild (1-3) Atenolol (Tenormin) 25 mg PO DAILY [facility] Last Admin: 02/24/17 08:18 Dose: Not Given Diphenhydramine HCl (Benadryl) 25 mg PO Q8 PRN PRN Reason: Itching / Pruritus Last Admin: 02/24/17 01:05 Dose: 25 mg Glipizide (Glucotrol) 5 mg PO DAILYWM [facility] Last Admin: 02/24/17 08:11 Dose: Not Given Heparin Sodium (Porcine) (Heparin) 5,000 units SC Q8 [facility] PRN Reason: Protocol Last Admin: 02/24/17 08:11 Dose: Not Given Insulin Human Regular (Humulin R) 0 units SC ACCU-CHECK [facility] PRN Reason: Protocol Last Admin: 02/24/17 08:17 Dose: Not Given Sevelamer HCl (Renagel) 1,600 mg PO TID [facility] Last Admin: 02/24/17 08:17 Dose: Not Given Sitagliptin Phosphate (Januvia) 25 mg PO DAILY [facility] Last Admin: 02/24/17 08:17 Dose: Not Given Results - Vital Signs Recent Vital Signs: Last Vital Signs Temp 98.5 F 02/24/17 08:00 Pulse 152 H 02/24/17 12:08 Resp 3 L 02/24/17 12:08 BP 88/37 L 02/24/17 12:08 Pulse Ox 100 02/24/17 12:01 - Labs Result Diagrams: 02/24/17 10:55 02/24/17 10:55 Labs: Laboratory Results - last 24 hr 02/23/17 02/23/17 02/24/17 15:58 21:02 03:18 WBC RBC Hgb Hct MCV MCH MCHC RDW Plt Count MPV Neut % (Auto) Lymph % (Auto) [place] % (Auto) Eos % (Auto) Baso % (Auto) Neut # Lymph # [place] # Eos # Baso # Neutrophils % (Manual) Band Neutrophils % Lymphocytes % (Manual) Monocytes % (Manual) Basophils % (Manual) Platelet Estimate Large Platelets Hypochromasia (manual) Poikilocytosis (manual Anisocytosis (manual) Tear Drop Cells Ovalocytes Betty Cells Schistocytes Retic Count PT INR APTT Sodium 139 Potassium 5.5 H Chloride 99 Carbon Dioxide 19 L Anion Gap 27 H BUN 83 H Creatinine 4.8 H Est GFR ( Amer) 11 Est GFR (Non-Af Amer) 9 POC Glucose (mg/dL) 304 H 188 H Random Glucose 117 H Calcium 7.5 L Magnesium Total Bilirubin AST ALT Alkaline Phosphatase Total Protein Albumin Globulin Albumin/Globulin Ratio Blood Type Antibody Screen Crossmatch BBK History Checked 02/24/17 02/24/17 02/24/17 05:00 05:30 06:30 WBC 7.6 RBC 2.06 L Hgb 6.3 L* D Hct 19.7 L MCV 95.3 MCH 30.4 MCHC 31.9 L RDW 20.4 H Plt Count 188 MPV 9.3 Neut % (Auto) 71.6 Lymph % (Auto) 17.0 L [place] % (Auto) 9.4 Eos % (Auto) 1.1 Baso % (Auto) 0.9 Neut # 5.5 Lymph # 1.3 [place] # 0.7 Eos # 0.1 Baso # 0.1 Neutrophils % (Manual) Band Neutrophils % Lymphocytes % (Manual) Monocytes % (Manual) Basophils % (Manual) Platelet Estimate Large Platelets Hypochromasia (manual) Poikilocytosis (manual Anisocytosis (manual) Tear Drop Cells Ovalocytes [place] Cells Schistocytes Retic Count PT INR APTT Sodium Potassium Chloride Carbon Dioxide Anion Gap BUN Creatinine Est GFR ( Amer) Est GFR (Non-Af Amer) POC Glucose (mg/dL) 99 Random Glucose Calcium Magnesium Total Bilirubin AST ALT Alkaline Phosphatase Total Protein Albumin Globulin Albumin/Globulin Ratio Blood Type A POSITIVE Antibody Screen Negative Crossmatch See Detail BBK History Checked Patient has bt 02/24/17 02/24/17 02/24/17 08:15 09:51 10:32 WBC RBC Hgb Hct MCV MCH MCHC RDW Plt Count MPV Neut % (Auto) Lymph % (Auto) [place] % (Auto) Eos % (Auto) Baso % (Auto) Neut # Lymph # [place] # Eos # Baso # Neutrophils % (Manual) Band Neutrophils % Lymphocytes % (Manual) Monocytes % (Manual) Basophils % (Manual) Platelet Estimate Large Platelets Hypochromasia (manual) Poikilocytosis (manual Anisocytosis (manual) Tear Drop Cells Ovalocytes Betty Cells Schistocytes Retic Count PT INR APTT Sodium Potassium Chloride Carbon Dioxide Anion Gap BUN Creatinine Est GFR ( Amer) Est GFR (Non-Af Amer) POC Glucose (mg/dL) 25 L* 241 H Random Glucose Calcium Magnesium 2.2 Total Bilirubin AST ALT Alkaline Phosphatase Total Protein Albumin Globulin Albumin/Globulin Ratio Blood Type Antibody Screen Crossmatch BBK History Checked 02/24/17 02/24/17 02/24/17 10:55 10:55 10:55 WBC 8.2 RBC 1.96 L Hgb 5.9 L* Hct 19.6 L MCV 99.8 H D MCH 30.0 MCHC 30.1 L RDW 21.0 H Plt Count 183 MPV 9.1 Neut % (Auto) 84.8 H Lymph % (Auto) 6.7 L [place] % (Auto) 7.9 Eos % (Auto) 0.1 Baso % (Auto) 0.5 Neut # 7.0 Lymph # 0.5 L [place] # 0.6 Eos # 0.0 Baso # 0.0 Neutrophils % (Manual) 82 H Band Neutrophils % 2 Lymphocytes % (Manual) 8 L Monocytes % (Manual) 7 Basophils % (Manual) 1 Platelet Estimate Normal Large Platelets Present Hypochromasia (manual) Moderate Poikilocytosis (manual Moderate Anisocytosis (manual) Marked Tear Drop Cells Slight Ovalocytes Slight Betty Cells Slight Schistocytes Slight Retic Count PT 16.5 H INR 1.6 H APTT 31.0 Sodium 140 Potassium 5.7 H Chloride 99 Carbon Dioxide 9 L* D Anion Gap 38 H BUN 81 H Creatinine 5.3 H Est GFR ( Amer) 10 Est GFR (Non-Af Amer) 8 POC Glucose (mg/dL) Random Glucose 128 H Calcium 7.6 L Magnesium Total Bilirubin 1.3 AST 92 H D ALT 51 Alkaline Phosphatase 133 H D Total Protein 5.3 L Albumin 2.8 L D Globulin 2.5 Albumin/Globulin Ratio 1.1 Blood Type Antibody Screen Crossmatch BBK History Checked 02/24/17 02/24/17 11:14 11:30 WBC RBC Hgb Hct MCV MCH MCHC RDW Plt Count MPV Neut % (Auto) Lymph % (Auto) [place] % (Auto) Eos % (Auto) Baso % (Auto) Neut # Lymph # [place] # Eos # Baso # Neutrophils % (Manual) Band Neutrophils % Lymphocytes % (Manual) Monocytes % (Manual) Basophils % (Manual) Platelet Estimate Large Platelets Hypochromasia (manual) Poikilocytosis (manual Anisocytosis (manual) Tear Drop Cells Ovalocytes Betty Cells Schistocytes Retic Count 3.6 H D PT INR APTT Sodium Potassium Chloride Carbon Dioxide Anion Gap BUN Creatinine Est GFR ( Amer) Est GFR (Non-Af Amer) POC Glucose (mg/dL) 145 H Random Glucose Calcium Magnesium Total Bilirubin AST ALT Alkaline Phosphatase Total Protein Albumin Globulin Albumin/Globulin Ratio Blood Type Antibody Screen Crossmatch BBK History Checked
[2017-02-24 13:50] LABS: TROPONIN I 1.79 ng/mL (0.00-0.120)
--- NOTE | 2017-02-24 14:17 | CP.PCM.PCO ---
Assessment & Plan - Assessment and Plan (Free Text) Assessment: NEURO COMMUNICATION NOTE: I CAME TO SEE THE PATIENT, BUT PATIENT HAD . THANK YOU DR. Ana GATES
--- NOTE | 2017-02-24 15:18 | PCM.PROC ---
Procedures Attestation:: I certify that I have explained the specified Operation(s) or Procedure(s), risks, benefits and reasonable alternatives to the Patient and/or other person responsible. The opportunity was given to ask questions and all questions answered - Central Line Placement Right Femoral Triple Lumen Catheter CVP Time Out Performed: Yes Pt. Placed on Pulse Ox Monitor: Yes Central Line Prep: Chlorhexidine-Alcohol Combination Local Anesthesia Used: Lidocaine 2% Amount of Anesthesia Used (mls): 2 Ultrasound Used for Placement: No Central Line Lumen Inserted: triple Central Line Length: 20 cm Post Procedure: Sutured in Place, Good Blood Return, All Ports Aspirated, Flushed, Capped, Sterile Dressing Applied Secured by: Suture Post procedure dressing: Chlorhexidine disc (Biopatch) Post Procedure X-Ray: No Patient Tolerated Procedure: Well, No Complications Immediate Complications: None
== END 2017-02-24 12:10 | DRG 291 ==
LOC: H.ER 06:21 → H.ERHOLD 08:24 → H.TEL 10:05 → H.ICU/CCU 02-24 10:44
PROVIDERS: ADMIT Internal Medicine; ATTEND Internal Medicine
PROC: 30233N1 Transfusion of Nonautologous Red Blood Cells into Peripheral Vein, Percutaneous Approach (ICD-10-PCS; 2017-02-21)
PROC: 5A1D60Z (ICD-10-PCS; principal; 2017-02-22)
PROC: 06HM33Z Insertion of Infusion Device into Right Femoral Vein, Percutaneous Approach (ICD-10-PCS; 2017-02-24)
DX: I13.2 Hypertensive heart and chronic kidney disease with heart failure and with stage 5 chronic kidney disease, or end stage renal disease (principal); N18.6 End stage renal disease; I44.2 Atrioventricular block, complete; G93.41 Metabolic encephalopathy; K92.0 Hematemesis; E11.22 Type 2 diabetes mellitus with diabetic chronic kidney disease; E11.649 Type 2 diabetes mellitus with hypoglycemia without coma; I46.9 Cardiac arrest, cause unspecified; E03.9 Hypothyroidism, unspecified; D63.8 Anemia in other chronic diseases classified elsewhere; E78.00 Pure hypercholesterolemia, unspecified; Z87.01 Personal history of pneumonia (recurrent); E78.5 Hyperlipidemia, unspecified; E87.5 Hyperkalemia; G47.30 Sleep apnea, unspecified; I44.7 Left bundle-branch block, unspecified; I50.9 Heart failure, unspecified; J44.9 Chronic obstructive pulmonary disease, unspecified; Z91.81 History of falling; Z79.84 Long term (current) use of oral hypoglycemic drugs; Z79.899 Other long term (current) drug therapy; Z86.73 Personal history of transient ischemic attack (TIA), and cerebral infarction without residual deficits; Z90.49 Acquired absence of other specified parts of digestive tract; Z99.2 Dependence on renal dialysis; F32.9 Major depressive disorder, single episode, unspecified; F41.9 Anxiety disorder, unspecified; K82.9 Disease of gallbladder, unspecified; N83.209 Unspecified ovarian cyst, unspecified side; M54.9 Dorsalgia, unspecified; R00.1 Bradycardia, unspecified